=== PATIENT | female | born 1980 | race Caucasian/White ===

== ENCOUNTER 2016-11-23 19:55 | Emergency (ER) | payer OTHER ==
[2016-11-23 20:17] VITALS: BP 105/63; PULSE 101; RESP 18; TEMP 98.7
--- NOTE | 2016-11-23 21:34 | CT ---
EXAMINATION TYPE: CT cervical spine wo con DATE OF EXAM: 11/23/2016 COMPARISON: 12/10/2015 HISTORY: 36-year-old female complains of grinding sensation in neck when turning head to left. TECHNIQUE: Contiguous axial scanning of the cervical spine without IV contrast. Coronal and sagittal reconstructions performed. CT DLP: 181.7 mGycm Automated exposure control for dose reduction was used. FINDINGS: No craniocervical junction abnormality, predental space widening, or prevertebral soft tissue swellin g. Normal alignment of the C1-C2 lateral masses. No focal disc herniation seen. Disc interspaces are relatively maintained. Assessment of the spinal c anal from C7-T1 and below is limited due to artifact from patient's shoulders. There is no significant neuroforaminal stenosis or significant spondylotic change identified in the c ervical spine. However, note, there is congenital fusion of T2-T3 and moderate to severe facet arthropathy on the ri ght at T3-T4 which mildly narrows the neural foramen. IMPRESSION: 1. NO SIGNIFICANT DEGENERATIVE CHANGE OR DISCRETE ABNORMALITY IDENTIFIED OF THE CERVICAL SPINE. 2. 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 CHANGES MILDLY NARROW THE RIGHT-SIDED NEUROFORAMEN.
[2016-11-23] MEDS ORDERED: Acetaminophen-Codeine 300-30mg TAB PO STA (21:46)
--- NOTE | 2016-11-23 21:47 | ED ---
Neck Injury/Pain HPI - General Chief Complaint: Neck Pain/Injury Stated Complaint: Neck Pain Time Seen by Provider: 11/23/16 20:24 Mode of arrival: ambulatory Limitations: no limitations - History of Present Illness Initial Comments: Patient is a 36-year-old female presenting to the emergency department with chief complaint of neck pain. Patient states her neck pain started 3 days ago. Patient currently rates pain 9 out of 10, described as sharp and burning and radiating down her back. Pain is exacerbated with flexion and extension and rotation. Patient denies recent illness, fevers, chills, nausea, vomiting, shortness of breath, chest pain, or abdominal pain. Patient reports chronic numbness and tingling to her hands. Patient denies recent trauma or injury to her neck. Patient states she took Motrin 800 mg at 4 PM this afternoon with minimal relief. - Related Data Home Medications Medication Instructions Recorded Confirmed Albuterol Inhaler [Ventolin Hfa 2 puff INHALATION RT-Q6H PRN 07/25/15 12/10/15 Inhaler] Hydrocodone/Acetaminophen 1 - 2 tab PO Q4-6H PRN 07/25/15 12/10/15 [Hydrocodon-Acetaminoph 7.5-325] LORazepam [Lorazepam] 0.5 mg PO BID PRN 10/04/15 12/10/15 Previous Rx's Medication Instructions Recorded Cyclobenzaprine [Flexeril] 10 mg PO TID #20 tab 12/10/15 Ibuprofen [Motrin] 600 mg PO Q6HR PRN #40 day 12/10/15 Acetaminophen-Codeine 300-30mg 1 tab PO Q6H PRN #20 tablet 11/23/16 [Tylenol #3] Cyclobenzaprine [Flexeril] 10 mg PO TID #20 tab 11/23/16 Allergies Allergy/AdvReac Type Severity Reaction Status Date / Time cephalexin monohydrate Allergy Unknown Verified 11/23/16 20:17 [From Keflex] gabapentin [From Neurontin] Allergy Unknown Verified 11/23/16 20:17 naproxen Allergy Unknown Verified 11/23/16 20:17 Sulfa (Sulfonamide Allergy Unknown Verified 11/23/16 20:17 Antibiotics) tramadol Allergy Unknown Verified 11/23/16 20:17 Review of Systems ROS Statement: Those systems with pertinent positive or pertinent negative responses have been documented in the HPI. ROS Other: All systems not noted in ROS Statement are negative. Past Medical History Past Medical History: No Reported History Additional Past Medical History / Comment(s): endometrosis, lower back tumor History of Any Multi-Drug Resistant Organisms: None Reported Past Surgical History: Hysterectomy, Orthopedic Surgery Additional Past Surgical History / Comment(s): LEFT KNEE SURGERY Past Psychological History: Anxiety Smoking Status: Current every day smoker Past Alcohol Use History: None Reported Past Drug Use History: None Reported General Exam Limitations: no limitations General appearance: alert, in no apparent distress Head exam: Present: atraumatic, normocephalic, normal inspection Eye exam: Present: normal appearance ENT exam: Present: normal exam, mucous membranes moist, normal external ear exam Neck exam: Present: tenderness, full ROM. Absent: meningismus, lymphadenopathy , thyromegaly Expanded Neck exam: Present: tenderness (Tetanus with flexion, extension and rotation). Absent: midline deformity, anterior neck swelling, thyroid mass, tracheal deviation Respiratory exam: Present: normal lung sounds bilaterally. Absent: respiratory distress, wheezes, rales, rhonchi, chest wall tenderness Cardiovascular Exam: Present: regular rate, tachycardia, normal heart sounds. Absent: systolic murmur GI/Abdominal exam: Present: soft, normal bowel sounds. Absent: distended, tenderness Extremities exam: Present: normal inspection, full ROM, normal capillary refill. Absent: tenderness Back exam: Present: normal inspection, full ROM. Absent: tenderness, CVA tenderness (R), CVA tenderness (L), muscle spasm, paraspinal tenderness, vertebral tenderness Neurological exam: Present: alert, oriented X3, CN II-XII intact, normal gait, reflexes normal. Absent: motor sensory deficit Psychiatric exam: Present: normal affect, normal mood Skin exam: Present: warm, dry, intact, normal color Course Vital Signs 11/23/16 20:13 Temperature 98.7 F Pulse Rate 101 H Respiratory 18 Rate Blood Pressure 105/63 O2 Sat by Pulse 99 Oximetry Medical Decision Making - Medical Decision Making Neck pain suspect secondary to cervical strain. Computed tomography scan of cervical spine with evidence of congenital vertebral fusion of T2 and T3 and moderate to severe facet arthropathy on the right at T3-T4 which mildly narrows to neural foramen. Patient prescribed muscle relaxer and Tylenol 3. Patient instructed to follow-up with primary care physician and orthopedic service. Patient started to return to the emergency department with any new or worsening symptoms. Patient agrees to treatment plan. - Radiology Data Radiology results: report reviewed CT cervical spine without contrast: No significant degenerative change of discrete abnormality identified of the cervical spine. There is however, a congenital vertebral fusion of T2 and T3 and moderate to severe facet arthropathy on the right at T3-T4 which mildly narrows to neural foramen. Disposition Clinical Impression: Cervical sprain Disposition: HOME SELF-CARE Condition: Good Instructions: Cervical Strain (ED) Additional Instructions: Continue Tylenol 3 and Flexeril as directed for pain. Please follow-up with orthopedic service as directed and primary care physician as directed. May apply warm compresses for relief. Please return to the emergency department with any new or worsening symptoms. Prescriptions: Acetaminophen-Codeine 300-30mg [Tylenol #3] 1 tab PO Q6H PRN #20 tablet PRN Reason: Pain Cyclobenzaprine [Flexeril] 10 mg PO TID #20 tab Referrals: Jerrod Ervin MD [Primary Care Provider] - 1-2 days Khanh Ly DO [Doctor of Osteopathic Medicine] - 1-2 days Time of Disposition: 21:47
== END 2016-11-23 21:59 | disposition home or self-care (01) ==
LOC: EC 19:55
DX: S13.4XXA Sprain of ligaments of cervical spine, initial encounter (principal); F17.200 Nicotine dependence, unspecified, uncomplicated; Z88.1 Allergy status to other antibiotic agents; Z88.6 Allergy status to analgesic agent; Z88.2 Allergy status to sulfonamides; Z88.8 Allergy status to other drugs, medicaments and biological substances; X58.XXXA Exposure to other specified factors, initial encounter
CPT/HCPCS: 72125; 99283

== ENCOUNTER 2017-02-28 21:56 | Emergency (ER) | payer OTHER ==
[2017-02-28 22:27] VITALS: BP 114/69; PULSE 87; RESP 20; TEMP 97.7
[2017-02-28] MEDS ORDERED: ORPHENADRINE 30 MG/ML 2 ML VIAL IM STA (22:36)
[2017-02-28] MEDS ORDERED: KETOROLAC 60 MG/2 ML VIAL IM STA (22:36)
--- NOTE | 2017-02-28 22:40 | ED ---
General Adult HPI - General Chief complaint: Neck Pain/Injury Stated complaint: Neck pain Time Seen by Provider: 02/28/17 22:31 Source: patient, RN notes reviewed Mode of arrival: ambulatory Limitations: no limitations - History of Present Illness Initial comments: 36-year-old female presents to the emergency Department chief complaint of flareup of her chronic neck pain. She's had nothing for a long time she's had CAT scans and x-rays of it. She states she's been following [facility] currently trying to get an x-ray to. She states last 2 days it has flared up. She's been taking Motrin Tylenol without much improvement. Patient states exactly like her normal pain. Sometimes will radiate up the neck. Some sides of the neck. She denies any new falls or traumas or injuries to the neck. She states she just needs something to help her get through this pain. There's been no other symptoms and the patient. She is otherwise feeling well. Patient denies any recent fever, chills, shortness of breath, chest pain, back pain, abdominal pain, nausea vomiting, numbness or tingling, dysuria or hematuria, constipation or diarrhea, headaches or visual changes, or any other current symptoms. - Related Data Home Medications Medication Instructions Recorded Confirmed Albuterol Inhaler [Ventolin Hfa 2 puff INHALATION RT-Q6H PRN 07/25/15 02/28/17 Inhaler] Hydrocodone/Acetaminophen 1 - 2 tab PO Q4-6H PRN 07/25/15 02/28/17 [Hydrocodon-Acetaminoph 7.5-325] LORazepam [Lorazepam] 0.5 mg PO BID PRN 10/04/15 02/28/17 Previous Rx's Medication Instructions Recorded Cyclobenzaprine [Flexeril] 10 mg PO TID #20 tab 12/10/15 Ibuprofen [Motrin] 600 mg PO Q6HR PRN #40 day 12/10/15 Acetaminophen-Codeine 300-30mg 1 tab PO Q6H PRN #20 tablet 11/23/16 [Tylenol #3] Cyclobenzaprine [Flexeril] 10 mg PO TID #20 tab 11/23/16 Orphenadrine [Norflex] 100 mg PO Q12H #10 tablet.er 02/28/17 predniSONE 50 mg PO DAILY #5 tab 02/28/17 Allergies Allergy/AdvReac Type Severity Reaction Status Date / Time cephalexin monohydrate Allergy Unknown Verified 02/28/17 22:27 [From Keflex] gabapentin [From Neurontin] Allergy Unknown Verified 02/28/17 22:27 naproxen Allergy Unknown Verified 02/28/17 22:27 Sulfa (Sulfonamide Allergy Unknown Verified 02/28/17 22:27 Antibiotics) tramadol Allergy Unknown Verified 02/28/17 22:27 Review of Systems ROS Statement: Those systems with pertinent positive or pertinent negative responses have been documented in the HPI. ROS Other: All systems not noted in ROS Statement are negative. Past Medical History Past Medical History: No Reported History Additional Past Medical History / Comment(s): endometrosis, lower back tumor History of Any Multi-Drug Resistant Organisms: None Reported Past Surgical History: Hysterectomy, Orthopedic Surgery Additional Past Surgical History / Comment(s): LEFT KNEE SURGERY Past Psychological History: Anxiety Smoking Status: Current every day smoker Past Alcohol Use History: None Reported Past Drug Use History: None Reported General Exam Limitations: no limitations General appearance: alert, in no apparent distress ENT exam: Present: normal exam, mucous membranes moist Neck exam: Present: normal inspection, tenderness (minimal paraspinal), full ROM. Absent: meningismus, lymphadenopathy Respiratory exam: Present: normal lung sounds bilaterally. Absent: respiratory distress, wheezes, rales, rhonchi, stridor Cardiovascular Exam: Present: regular rate, normal rhythm, normal heart sounds. Absent: systolic murmur, diastolic murmur, rubs, gallop, clicks Neurological exam: Present: alert, oriented X3 Psychiatric exam: Present: normal affect, normal mood Skin exam: Present: warm, dry, intact, normal color. Absent: rash Course Vital Signs 02/28/17 22:25 Temperature 97.7 F Pulse Rate 87 Respiratory 20 Rate Blood Pressure 114/69 O2 Sat by Pulse 98 Oximetry Medical Decision Making - Medical Decision Making 36-year-old female presents emergency 5 chief complaint of flareup of her chronic pain. This time we did give the patient injections we'll start her muscle axes and steroids for home. We discussed follow-up with her doctor we discussed return parameters all questions. Patient stated that she understood and she is given plan. All questions have been answered. She will be discharged. Disposition Clinical Impression: Strain of neck muscle, Chronic neck pain Disposition: HOME SELF-CARE Condition: Stable Instructions: Cervical Strain (ED) Additional Instructions: Please use medication as discussed. Please follow up with family doctor if symptoms have not improved over the next two days. Please return to the emergency room if your symptoms increase or worsen or for any other concerns. Prescriptions: Orphenadrine [Norflex] 100 mg PO Q12H #10 tablet.er predniSONE 50 mg PO DAILY #5 tab Referrals: Jerrod Ervin MD [Primary Care Provider] - 1-2 days Time of Disposition: 22:39
== END 2017-02-28 22:56 | disposition home or self-care (01) ==
LOC: EC 21:56
DX: S16.1XXA Strain of muscle, fascia and tendon at neck level, initial encounter (principal); F17.200 Nicotine dependence, unspecified, uncomplicated; G89.29 Other chronic pain; Z88.1 Allergy status to other antibiotic agents; Z88.8 Allergy status to other drugs, medicaments and biological substances; Z88.6 Allergy status to analgesic agent; Z88.2 Allergy status to sulfonamides
CPT/HCPCS: 99282; 96372 ×2; J2360; J1885

== ENCOUNTER 2017-07-10 18:25 | Observation (INO) | payer OTHER ==
[2017-07-10] MEDS ORDERED: ONDANSETRON 4 MG/2 ML VIAL IVP STA (18:45)
[2017-07-10] MEDS ORDERED: SODIUM CHLORIDE 0.9% 1,000 ML IV STA (18:45)
[2017-07-10] MEDS ORDERED: MORPHINE SULFATE 2 MG/ML SYRINGE IVP ONE (18:46)
--- NOTE | 2017-07-10 18:49 | ED ---
Abdominal Pain HPI - General Chief Complaint: Abdominal Pain Stated Complaint: ABDOMINAL PAIN Time Seen by Provider: 07/10/17 18:32 Source: patient, RN notes reviewed, old records reviewed Mode of arrival: ambulatory Limitations: no limitations - History of Present Illness Initial Comments: 6 year female presents the emergency department today she of lower right-sided abdominal pain for one day. Patient states she is concerned she may have an issue with her ovary or her kidney. Patient relates that she partial hysterectomy 5 years ago. Patient states that she has had no fever or chills. Normal bowel movement today. No nausea or vomiting. Patient relates her urine been normal. Denies vaginal discharge. She states that she occasionally will have the pain radiating towards her back however she doesn't chronic back pain. - Related Data Home Medications Medication Instructions Recorded Confirmed Varenicline [Chantix Starter Pack] 0.5 mg PO BID 07/10/17 07/10/17 Allergies Allergy/AdvReac Type Severity Reaction Status Date / Time cephalexin monohydrate Allergy Unknown Verified 07/10/17 18:57 [From Keflex] gabapentin [From Neurontin] Allergy Unknown Verified 07/10/17 18:57 naproxen Allergy Unknown Verified 07/10/17 18:57 Sulfa (Sulfonamide Allergy Unknown Verified 07/10/17 18:57 Antibiotics) tramadol Allergy Unknown Verified 07/10/17 18:57 Review of Systems ROS Statement: Those systems with pertinent positive or pertinent negative responses have been documented in the HPI. ROS Other: All systems not noted in ROS Statement are negative. Past Medical History Past Medical History: No Reported History Additional Past Medical History / Comment(s): endometrosis, lower back tumor History of Any Multi-Drug Resistant Organisms: None Reported Past Surgical History: Hysterectomy, Orthopedic Surgery Additional Past Surgical History / Comment(s): LEFT KNEE SURGERY Past Psychological History: Anxiety Smoking Status: Current every day smoker Past Alcohol Use History: None Reported Past Drug Use History: None Reported General Exam - General Exam Comments Initial Comments: This patient's a 36-year-old female. No acute distress. Limitations: no limitations General appearance: alert, in no apparent distress Head exam: Present: atraumatic, normocephalic, normal inspection Eye exam: Present: normal appearance, PERRL, EOMI. Absent: scleral icterus, conjunctival injection, periorbital swelling ENT exam: Present: normal exam, mucous membranes moist Neck exam: Present: normal inspection. Absent: tenderness, meningismus, lymphadenopathy Respiratory exam: Present: normal lung sounds bilaterally. Absent: respiratory distress, wheezes, rales, rhonchi, stridor Cardiovascular Exam: Present: regular rate, normal rhythm, normal heart sounds. Absent: systolic murmur, diastolic murmur, rubs, gallop, clicks GI/Abdominal exam: Present: soft, tenderness (Right lower quadrant pain and tenderness.), normal bowel sounds. Absent: distended, guarding, rebound, rigid Extremities exam: Present: normal inspection, full ROM, normal capillary refill. Absent: tenderness, pedal edema, joint swelling, calf tenderness Back exam: Present: normal inspection Neurological exam: Present: alert, oriented X3, CN II-XII intact Course Vital Signs 07/10/17 07/10/17 07/10/17 18:27 20:12 21:34 Temperature 98.8 F Pulse Rate 119 H 81 78 Respiratory 20 18 18 Rate Blood Pressure 99/63 108/67 103/65 O2 Sat by Pulse 99 100 100 Oximetry 07/10/17 22:40 Temperature 98.1 F Pulse Rate 79 Respiratory 18 Rate Blood Pressure 106/67 O2 Sat by Pulse 97 Oximetry Medical Decision Making - Medical Decision Making 36-year-old female presents emergency Department chief complaint of right lower quadrant pain for the past day. No fever or chills. Lab work was reviewed and unremarkable. She was quite tender on exam. CT abdomen and pelvis were completed. There is evidence of early narcotic acute appendicitis. Patient started on Zosyn. Discussed case with Dr. Fuller who discussed with Dr. Nelson. Patient will be admitted under Dr. Nelson. Nothing by mouth after midnight. - Lab Data Result diagrams: 07/10/17 19:00 07/10/17 19:00 Lab Results 07/10/17 07/10/17 07/10/17 Range/Units 19:00 19:00 19:00 WBC 9.5 (3.8-10.6) k/uL RBC 4.26 (3.80-5.40) m/uL Hgb 13.4 (11.4-16.0) gm/dL Hct 40.4 (34.0-46.0) % MCV 94.8 (80.0-100.0) fL MCH 31.5 (25.0-35.0) pg MCHC 33.2 (31.0-37.0) g/dL RDW 13.0 (11.5-15.5) % Plt Count 300 (150-450) k/uL Neutrophils % 69 % Lymphocytes % 25 % Monocytes % 4 % Eosinophils % 1 % Basophils % 0 % Neutrophils # 6.6 (1.3-7.7) k/uL Lymphocytes # 2.4 (1.0-4.8) k/uL Monocytes # 0.4 (0-1.0) k/uL Eosinophils # 0.1 (0-0.7) k/uL Basophils # 0.0 (0-0.2) k/uL PT 10.5 (9.0-12.0) sec INR 1.1 (<1.2) APTT 24.1 (22.0-30.0) sec Sodium 142 (137-145) mmol/L Potassium 4.0 (3.5-5.1) mmol/L Chloride 106 (98-107) mmol/L Carbon Dioxide 25 (22-30) mmol/L Anion Gap 11 mmol/L BUN 7 (7-17) mg/dL Creatinine 0.60 (0.52-1.04) mg/dL Est GFR (CKD-EPI)AfAm >90 (>60 ml/min/1.73 sqM) Est GFR (CKD-EPI)NonAf >90 (>60 ml/min/1.73 sqM) Glucose 97 (74-99) mg/dL Plasma Lactic Acid Rudy (0.7-2.0) mmol/L Calcium 9.5 (8.4-10.2) mg/dL Total Bilirubin 0.5 (0.2-1.3) mg/dL AST 15 (14-36) U/L ALT 22 (9-52) U/L Alkaline Phosphatase 55 (38-126) U/L Total Protein 6.6 (6.3-8.2) g/dL Albumin 4.1 (3.5-5.0) g/dL Amylase 62 (30-110) U/L Lipase 90 (23-300) U/L Urine Color Urine Appearance (Clear) Urine pH (5.0-8.0) Ur Specific [place] (1.001-1.035) Urine Protein (Negative) Urine Glucose (UA) (Negative) Urine Ketones (Negative) Urine Blood (Negative) Urine Nitrite (Negative) Urine Bilirubin (Negative) Urine Urobilinogen (<2.0) mg/dL Ur Leukocyte Esterase (Negative) 07/10/17 07/10/17 Range/Units 19:00 19:00 WBC (3.8-10.6) k/uL RBC (3.80-5.40) m/uL Hgb (11.4-16.0) gm/dL Hct (34.0-46.0) % MCV (80.0-100.0) fL MCH (25.0-35.0) pg MCHC (31.0-37.0) g/dL RDW (11.5-15.5) % Plt Count (150-450) k/uL Neutrophils % % Lymphocytes % % Monocytes % % Eosinophils % % Basophils % % Neutrophils # (1.3-7.7) k/uL Lymphocytes # (1.0-4.8) k/uL Monocytes # (0-1.0) k/uL Eosinophils # (0-0.7) k/uL Basophils # (0-0.2) k/uL PT (9.0-12.0) sec INR (<1.2) APTT (22.0-30.0) sec Sodium (137-145) mmol/L Potassium (3.5-5.1) mmol/L Chloride (98-107) mmol/L Carbon Dioxide (22-30) mmol/L Anion Gap mmol/L BUN (7-17) mg/dL Creatinine (0.52-1.04) mg/dL Est GFR (CKD-EPI)AfAm (>60 ml/min/1.73 sqM) Est GFR (CKD-EPI)NonAf (>60 ml/min/1.73 sqM) Glucose (74-99) mg/dL Plasma Lactic Acid Rudy 0.8 (0.7-2.0) mmol/L Calcium (8.4-10.2) mg/dL Total Bilirubin (0.2-1.3) mg/dL AST (14-36) U/L ALT (9-52) U/L Alkaline Phosphatase (38-126) U/L Total Protein (6.3-8.2) g/dL Albumin (3.5-5.0) g/dL Amylase (30-110) U/L Lipase (23-300) U/L Urine Color Light Yellow Urine Appearance Clear (Clear) Urine pH 6.5 (5.0-8.0) Ur Specific [place] 1.005 (1.001-1.035) Urine Protein Negative (Negative) Urine Glucose (UA) Negative (Negative) Urine Ketones Negative (Negative) Urine Blood Negative (Negative) Urine Nitrite Negative (Negative) Urine Bilirubin Negative (Negative) Urine Urobilinogen <2.0 (<2.0) mg/dL Ur Leukocyte Esterase Negative (Negative) - Radiology Data Radiology results: report reviewed Borderline appendix CT findings. The findings correlate with the clinical diagnosis of 9, acute appendicitis. 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 Disposition Clinical Impression: Appendicitis Disposition: HOME SELF-CARE Condition: Good Is patient prescribed a controlled substance at d/c from ED?: No When asked, does pt state using other controlled substances?: No If prescribed controlled substance>3 days was MAPS reviewed?: No If opioid is for acute pain is fill amount 7 days or less?: No If Rx opioid, was Start Talking consent form obtained?: No Referrals: Jluis Moore MD [Primary Care Provider] - 1-2 days Time of Disposition: 23:07
[2017-07-10 19:17] LABS: Appearance,Urine Clear (Clear); Basophils % (A) 0 %; Bilirubin,Urine Negative (Negative); Blood,Urine Negative (Negative); Color,Urine Light Yellow; Eosinophils # (A) 0.1 k/uL (0-0.7); Eosinophils % (A) 1 %; Glucose,Urine (UA) Negative (Negative); HCT 40.4 % (34.0-46.0); HGB 13.4 gm/dL (11.4-16.0); Ketones,Urine Negative (Negative); Leukocyte Esterase,Urine Negative (Negative); Lymphocytes # (A) 2.4 k/uL (1.0-4.8); Lymphocytes % (A) 25 %; MCH 31.5 pg (25.0-35.0); MCHC 33.2 g/dL (31.0-37.0); MCV 94.8 fL (80.0-100.0); Mean Platelet Volume 6.8; Monocytes # (A) 0.4 k/uL (0-1.0); Monocytes % (A) 4 %; Neutrophils # (A) 6.6 k/uL (1.3-7.7); Neutrophils % (A) 69 %; Nitrite,Urine Negative (Negative); PH, Urine 6.5 (5.0-8.0); Platelet Count 300 k/uL (150-450); Protein,Urine Negative (Negative); RBC 4.26 m/uL (3.80-5.40); Specific Gravity,Urine 1.005 (1.001-1.035); Urobilinogen,Urine <2.0 mg/dL (<2.0); WBC 9.5 k/uL (3.8-10.6)
[2017-07-10 19:30] LABS: ALT 22 U/L (9-52); AST 15 U/L (14-36); Albumin 4.1 g/dL (3.5-5.0); Alkaline Phosphatase 55 U/L (38-126); Amylase 62 U/L (30-110); Anion Gap 11 mmol/L; Blood Urea Nitrogen 7 mg/dL (7-17); Calcium 9.5 mg/dL (8.4-10.2); Carbon Dioxide 25 mmol/L (22-30); Chloride 106 mmol/L (98-107); Glucose 97 mg/dL (74-99); Lipase 90 U/L (23-300); Sodium 142 mmol/L (137-145); Total Bilirubin 0.5 mg/dL (0.2-1.3); Total Protein 6.6 g/dL (6.3-8.2)
[2017-07-10 19:34] LABS: INR 1.1 (<1.2); Partial Thromboplastin Time 24.1 sec (22.0-30.0); Prothrombin Time 10.5 sec (9.0-12.0)
--- NOTE | 2017-07-10 22:02 | CT ---
EXAMINATION TYPE: CT abdomen pelvis w con DATE OF EXAM: 07/10/2017 COMPARISON: NONE HISTORY: Lower abdominal pain x [address] DLP: 1090 mGycm Automated exposure control for dose reduction was used. TECHNIQUE: Helical acquisition of images was performed from the lung bases through the pelvis. CONTRAST: Performed without Oral Contrast and with IV Contrast, patient injected with 100 mL of Isovue 300. FINDINGS: LUNG BASES: No significant abnormality is appreciated. LIVER/GB: No significant abnormality is appreciated. PANCREAS: No significant abnormality is seen. SPLEEN: No significant abnormality is seen. ADRENALS: No significant abnormality is seen. 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 Otherwise, the kidneys are unremarkable. PERITONEAL CAVITY: No free air is visualized. No peritoneal fluid. RETROPERITONEAL ADENOPATHY: None visualized REPRODUCTIVE ORGANS: No significant abnormality is seen URINARY BLADDER: No significant abnormality is seen. PELVIC ADENOPATHY: None visualized. OSSEOUS STRUCTURES: No significant abnormality is seen. VASCULATURE: Unremarkable. BOWEL: The cecum is low in position, it abuts the urinary bladder dome. The appendix is retrocecal, extending posterior laterally and then superiorly where there is a 2 mm appendicolith within its lume n. The diameter of the appendix is slightly increased from normal, measuring 8 mm in its caliber rath er than the normal < 6 mm. There is no periappendiceal inflammation. Adjacent to the appendix are beau pacified small bowel loops which make visibility difficult. Remainder of the bowel are unremarkable. IMPRESSION: 1. BORDERLINE APPENDIX CT FINDINGS; THE FINDINGS CAN CORRELATE WITH A CLINICAL DIAGNOSIS OF NONCOMPL ICATED APPENDICITIS. 2. Intrapelvic right kidney noted, congenital variant anatomy.
[2017-07-10] MEDS ORDERED: MORPHINE SULFATE 2 MG/ML SYRINGE IVP STA (22:17)
[2017-07-10] MEDS: SODIUM CHLORIDE 0.9% 1,000 ML IV SCH (22:35)
[2017-07-10] MEDS ORDERED: diphenhydrAMINE 50 MG/ML 1 ML VIAL IVP STA (22:45)
[2017-07-10] MEDS ORDERED: PIPERACILLIN-TAZOBACTAM 3.375 GM in DEXTROSE/WATER 1 50ML.BAG IVPB STA (22:45)
[2017-07-10] MEDS ORDERED: NALOXONE 0.4 MG/ML 1 ML VIAL IV PRN (23:08)
[2017-07-10] MEDS ORDERED: ACETAMINOPHEN TAB 325 MG TAB PO PRN (23:08)
[2017-07-10] MEDS ORDERED: ONDANSETRON 4 MG/2 ML VIAL IVP PRN (23:08)
[2017-07-10] MEDS ORDERED: IBUPROFEN 400 MG TAB PO PRN (23:08)
[2017-07-10] MEDS ORDERED: KETOROLAC 30 MG/ML 1 ML VIAL IVP PRN (23:08)
[2017-07-11 01:11] VITALS: BMI 19.6
[2017-07-11] MEDS: MORPHINE SULFATE 2 MG/ML SYRINGE IV PRN ×5 (02:29→22:06)
[2017-07-11] MEDS: SODIUM CHLORIDE 0.9% 1,000 ML IV SCH (07:30)
[2017-07-11 07:52] LABS: Basophils % (A) 0 %; Eosinophils # (A) 0.1 k/uL (0-0.7); Eosinophils % (A) 1 %; HCT 35.6 % (34.0-46.0); HGB 11.6 gm/dL (11.4-16.0); Lymphocytes # (A) 4.1 k/uL (1.0-4.8); Lymphocytes % (A) 45 %; MCH 31.4 pg (25.0-35.0); MCHC 32.7 g/dL (31.0-37.0); MCV 95.9 fL (80.0-100.0); Mean Platelet Volume 7.4; Monocytes # (A) 0.6 k/uL (0-1.0); Monocytes % (A) 6 %; Neutrophils # (A) 4.2 k/uL (1.3-7.7); Neutrophils % (A) 46 %; Platelet Count 256 k/uL (150-450); RBC 3.71 m/uL (3.80-5.40); RDW 13.1 % (11.5-15.5); WBC 9.1 k/uL (3.8-10.6)
--- NOTE | 2017-07-11 08:04 | P.GSHP ---
History of Present Illness H&P Date: 07/11/17 Chief Complaint: Right lower quadrant pain This is a 36-year-old female who has complaints of right lower quadrant pain. Patient states that she has had some mild intermittent pain in the right lower quadrant over the last 2 weeks. Last night she presented to the emergency room with severe right lower quadrant pain. She's had a CAT scan performed which shows questionable appendicitis. Past Medical History Past Medical History: No Reported History Additional Past Medical History / Comment(s): endometrosis, lower back tumor History of Any Multi-Drug Resistant Organisms: None Reported Past Surgical History: Section, Hysterectomy, Orthopedic Surgery Additional Past Surgical History / Comment(s): LEFT KNEE SURGERY,t3,4 and 5 fused together Past Psychological History: Anxiety Smoking Status: Current every day smoker Past Alcohol Use History: None Reported Past Drug Use History: None Reported - Past Family History Mother Family Medical History: Cancer Additional Family Medical History / Comment(s): of cancer Father Family Medical History: Hyperlipidemia, Hypertension, Myocardial Infarction ([place]) Medications and Allergies Home Medications Medication Instructions Recorded Confirmed Type Albuterol Inhaler [Ventolin Hfa 2 puff INHALATION Q6HR PRN 07/10/17 07/11/17 History Inhaler] Varenicline [Chantix Starter Pack] 0.5 mg PO BID 07/10/17 07/10/17 History Allergies Allergy/AdvReac Type Severity Reaction Status Date / Time cephalexin monohydrate Allergy Unknown Verified 07/10/17 18:57 [From Keflex] cortisone Allergy Swelling Verified 07/11/17 00:04 gabapentin [From Neurontin] Allergy Unknown Verified 07/11/17 00:04 naproxen Allergy Dyspnea Verified 07/11/17 00:04 Sulfa (Sulfonamide Allergy Anaphylaxis Verified 07/11/17 00:04 Antibiotics) tramadol Allergy Rash/Hives Verified 07/11/17 00:04 Surgical - Exam Vital Signs Temp Pulse Resp BP Pulse Ox 98.8 F 119 H 20 99/63 99 07/10/17 18:27 07/10/17 18:27 07/10/17 18:27 07/10/17 18:27 07/10/17 18:27 - General well developed, no distress - Eyes PERRL - ENT normal pinna - Neck no masses - Respiratory normal expansion - Cardiovascular Rhythm: regular - Abdomen Right lower quadrant pain with rebound tenderness Abdomen: soft Results - Labs 07/11/17 07:40 07/10/17 19:00 Abnormal Lab Results - Last 24 Hours (Table) 07/11/17 Range/Units 07:40 RBC 3.71 L (3.80-5.40) m/uL Diabetes panel 07/10/17 Range/Units 19:00 Sodium 142 (137-145) mmol/L Potassium 4.0 (3.5-5.1) mmol/L Chloride 106 (98-107) mmol/L Carbon Dioxide 25 (22-30) mmol/L BUN 7 (7-17) mg/dL Creatinine 0.60 (0.52-1.04) mg/dL Glucose 97 (74-99) mg/dL Calcium 9.5 (8.4-10.2) mg/dL AST 15 (14-36) U/L ALT 22 (9-52) U/L Alkaline Phosphatase 55 (38-126) U/L Total Protein 6.6 (6.3-8.2) g/dL Albumin 4.1 (3.5-5.0) g/dL Calcium panel 07/10/17 Range/Units 19:00 Calcium 9.5 (8.4-10.2) mg/dL Albumin 4.1 (3.5-5.0) g/dL Pituitary panel 07/10/17 Range/Units 19:00 Sodium 142 (137-145) mmol/L Potassium 4.0 (3.5-5.1) mmol/L Chloride 106 (98-107) mmol/L Carbon Dioxide 25 (22-30) mmol/L BUN 7 (7-17) mg/dL Creatinine 0.60 (0.52-1.04) mg/dL Glucose 97 (74-99) mg/dL Calcium 9.5 (8.4-10.2) mg/dL Adrenal panel 07/10/17 Range/Units 19:00 Sodium 142 (137-145) mmol/L Potassium 4.0 (3.5-5.1) mmol/L Chloride 106 (98-107) mmol/L Carbon Dioxide 25 (22-30) mmol/L BUN 7 (7-17) mg/dL Creatinine 0.60 (0.52-1.04) mg/dL Glucose 97 (74-99) mg/dL Calcium 9.5 (8.4-10.2) mg/dL Total Bilirubin 0.5 (0.2-1.3) mg/dL AST 15 (14-36) U/L ALT 22 (9-52) U/L Alkaline Phosphatase 55 (38-126) U/L Total Protein 6.6 (6.3-8.2) g/dL Albumin 4.1 (3.5-5.0) g/dL Assessment and Plan Assessment: Acute appendicitis. We'll perform laparoscopic appendectomy.
[2017-07-11] MEDS ORDERED: IV FLUID CONTINUATION 1,000 ML IV ONE (08:31)
[2017-07-11] MEDS ORDERED: ALBUTEROL NEBULIZED 2.5 MG/3 ML INHALATION STA (08:34)
[2017-07-11 08:37] LABS: ALT 16 U/L (9-52); AST 13 U/L (14-36); Albumin 2.9 g/dL (3.5-5.0); Alkaline Phosphatase 42 U/L (38-126); Anion Gap 7 mmol/L; Blood Urea Nitrogen 6 mg/dL (7-17); Calcium 8.7 mg/dL (8.4-10.2); Carbon Dioxide 24 mmol/L (22-30); Chloride 109 mmol/L (98-107); Glucose 88 mg/dL (74-99); Potassium 4.1 mmol/L (3.5-5.1); Sodium 140 mmol/L (137-145); Total Bilirubin 0.5 mg/dL (0.2-1.3); Total Protein 5.1 g/dL (6.3-8.2)
[2017-07-11] MEDS ORDERED: SCOPOLAMINE 1.5MG/72HR PATCH TRANSDERM ONE (08:37)
[2017-07-11] MEDS ORDERED: HEPARIN SODIUM,PORCINE 5,000 UNIT/ML 1 ML VIAL SQ ONE (08:38)
[2017-07-11] MEDS ORDERED: ONDANSETRON 4 MG/2 ML VIAL IVP ONE (08:38)
[2017-07-11] MEDS ORDERED: PANTOPRAZOLE 40 MG/10 ML VIAL IV SCH (09:00)
[2017-07-11] MEDS ORDERED: GLYCOPYRROLATE 0.2 MG/ML 2 ML VIAL ONE (09:01)
[2017-07-11] MEDS ORDERED: fentaNYL (PF) 50 MCG/ML 2 ML AMP ONE (09:01)
[2017-07-11] MEDS ORDERED: LIDOCAINE 1% INJ 10MG/ML (20 ML MDV) ONE (09:01)
[2017-07-11] MEDS ORDERED: KETOROLAC 30 MG/ML 1 ML VIAL ONE (09:01)
[2017-07-11] MEDS ORDERED: NEOSTIGMINE 1 MG/ML 10 ML VIAL ONE (09:01)
[2017-07-11] MEDS ORDERED: PROPOFOL 10 MG/ML 20 ML VIAL IV ONE (09:01)
[2017-07-11] MEDS ORDERED: MIDAZOLAM 2 MG/2 ML VIAL ONE (09:01)
[2017-07-11] MEDS ORDERED: SUCCINYLCHOLINE CHLORIDE 100 MG/5 ML SYR IV ONE (09:01)
[2017-07-11] MEDS ORDERED: ROCURONIUM BROMIDE 10 MG/ML 10 ML VIAL IV ONE (09:01)
[2017-07-11] MEDS ORDERED: MORPHINE SULFATE 10 MG/ML SYRINGE ONE (09:01)
[2017-07-11] MEDS ORDERED: BUPIVACAINE (PF) 0.5% 30 ML VIAL SQ ONE (09:22)
--- NOTE | 2017-07-11 09:35 | P.OP ---
Date of Procedure: 07/11/17 Preoperative Diagnosis: Acute appendicitis Postoperative Diagnosis: Acute appendicitis Procedure(s) Performed: Laparoscopic appendectomy Anesthesia: ALEJO Surgeon: Cole Nelson Estimated Blood Loss (ml): 5 Pathology: other (Appendix) Condition: stable Disposition: PACU Description of Procedure: The patient's placed on the operating table in the supine position. The patient received general anesthesia. The abdomen was prepped and draped in the usual sterile fashion. The skin was anesthetized 1% local Xylocaine at the trocar sites. Using an 11 blade the skin was incised at the umbilicus. The umbilicus was grasped with a [place] clamp and then a Veress needle was placed into the peritoneal cavity. Position of the Veress needle was confirmed with positive drop test. After adequate insufflation a 5 mm trocar was placed into the peritoneal cavity. The abdomen was further insufflated. And then the laparoscope was placed in the peritoneal cavity. Next a 5 mm trocar was placed in the midline suprapubic position. And then a 10 mm trocar was placed in the midline epigastric position. The patient was rotated with the right side up and in Trendelenburg. The appendix was visualized. The appendix appeared to be inflamed. The appendix was grasped and then using the Harmonic scissors the mesoappendix was divided. A PDS Endoloop was then placed around the base of the appendix. And then the appendix was divided using Harmonic scissors. The appendix was placed into an Endo Catch and brought out through the 10 mm trocar site. The abdomen was irrigated. There is no bleeding seen. The trochars withdrawn. The skin was closed interrupted 3-0 Monocryl suture. Dermabond dressing was applied. Patient was sent to recovery room in stable condition.
[2017-07-11] MEDS: MORPHINE SULFATE 4MG/4ML SYRG IVP ONE ×4 (10:05→10:25)
[2017-07-11] MEDS ORDERED: LACTATED RINGERS 1,000 ML IV SCH (15:15)
[2017-07-11] MEDS: KETOROLAC 30 MG/ML 1 ML VIAL IVP PRN (20:42)
[2017-07-11] MEDS: SIMETHICONE 80 MG CHEWABLE PO SCH (22:07)
[2017-07-12] MEDS: SODIUM CHLORIDE 0.9% 1,000 ML IV SCH ×2 (01:03→05:22)
[2017-07-12] MEDS: KETOROLAC 30 MG/ML 1 ML VIAL IVP PRN ×2 (04:23→10:28)
[2017-07-12] MEDS: MORPHINE SULFATE 2 MG/ML SYRINGE IV PRN ×2 (04:24→12:50)
[2017-07-12 05:17] VITALS: PULSE 94; RESP 16
--- NOTE | 2017-07-12 08:17 | P.PN ---
Subjective Progress Note Date: 07/12/17 Principal diagnosis: Appendicitis She is POD 1 s/p appendectomy. She reports right flank pain. She had troubles with abdominal gas bloat last night. She has history of chronic pain and takes Patten regularly. She is voiding spontaneously. She is tolerating diet. Objective - Vital Signs Vital signs: Vital Signs Temp 98.3 F 07/12/17 04:16 Pulse 94 07/12/17 04:16 Resp 16 07/12/17 04:16 BP 108/69 07/12/17 04:16 Pulse Ox 96 07/12/17 04:16 Intake & Output 07/11/17 07/12/17 07/12/17 18:59 06:59 18:59 Intake Total 2400 Output Total 5 Balance 2395 Intake: IV 500 Oral 1900 Output: Estimated Blood Loss 5 Other: # Voids 1 1 - Exam GENERAL: Well developed and in no acute distress. Pleasant. HEENT: No sclera icterus. Extraocular movements grossly intact. Moist buccal mucosa. Head is atraumatic, normocephalic. Hears conversational speech. No nasal drainage. Has poor dentition with missing teeth. NECK: Supple without lymphadenopathy. No JV distention. CHEST: Non-labored respirations and equal bilateral excursions. CARDIOVASCULAR: Regular rate and rhythm. Palpable 2+ radial pulses. ABDOMEN: Soft, mild distention. Incisions are intact. No signs of cellulitis or infection. Mild tenderness right lower quadrant. MUSCULOSKELETAL: No clubbing, cyanosis or edema. NEUROLOGIC: No focal or lateralizing signs. PSYCH: Appropriate affect. Alert and oriented to person, place and time. SKIN: Good skin turgor. Well perfused. - Labs CBC & Chem 7: 07/11/17 07:40 07/11/17 07:40 Labs: Abnormal Lab Results - Last 24 Hours (Table) 07/11/17 Range/Units 07:40 Chloride 109 H (98-107) mmol/L BUN 6 L (7-17) mg/dL AST 13 L (14-36) U/L Total Protein 5.1 L (6.3-8.2) g/dL Albumin 2.9 L (3.5-5.0) g/dL Microbiology - Last 24 Hours (Table) 07/10/17 19:00 Blood Culture - Preliminary Blood No Growth after 24 hours Assessment and Plan (1) Chronic pain syndrome Current Visit: Yes Status: Acute Code(s): G89.4 - CHRONIC PAIN SYNDROME SNOMED Code(s): 199379783 (2) Chronic lower back pain Current Visit: Yes Status: Acute Code(s): M54.5 - LOW BACK PAIN; G89.29 - OTHER CHRONIC PAIN SNOMED Code(s): 679382418 (3) Narcotic dependence, episodic use Current Visit: Yes Status: Acute Code(s): F11.20 - OPIOID DEPENDENCE, UNCOMPLICATED SNOMED Code(s): 300456022 Plan: 1. She still reports uncontrolled pain. Will reassess for possible discharge this afternoon. 2. Follow-up instructions were reviewed.
[2017-07-12 08:23] VITALS: BP 97/59; TEMP 98
[2017-07-12] MEDS ORDERED: HYDROcodone/APAP 7.5-325MG 1 EACH TAB PO PRN (08:24)
[2017-07-12] MEDS ORDERED: SIMETHICONE 80 MG CHEWABLE PO SCH (09:00)
[2017-07-12] MEDS ORDERED: PANTOPRAZOLE 40 MG TABLET PO SCH (09:00)
[2017-07-12] MEDS: SIMETHICONE 80 MG CHEWABLE PO SCH (09:34)
== END 2017-07-12 13:55 | disposition home or self-care (01) ==
LOC: EC 18:25 → 6PED 23:10
PROVIDERS: ADMIT Surgery; ATTEND Surgery
DX: K35.80 Unspecified acute appendicitis (principal); F17.200 Nicotine dependence, unspecified, uncomplicated; J45.909 Unspecified asthma, uncomplicated; G89.4 Chronic pain syndrome; M54.5 Low back pain; F11.20 Opioid dependence, uncomplicated; Z90.710 Acquired absence of both cervix and uterus; Z79.899 Other long term (current) drug therapy; Z82.49 Family history of ischemic heart disease and other diseases of the circulatory system; Z80.9 Family history of malignant neoplasm, unspecified; Z88.1 Allergy status to other antibiotic agents; Z88.5 Allergy status to narcotic agent; Z88.2 Allergy status to sulfonamides; Z88.8 Allergy status to other drugs, medicaments and biological substances
CPT/HCPCS: 44970; 99285 ×2; 96375 ×4; 96361 ×2; 96376 ×2; 96365 ×2; 96366; 36415; 94640; 81025; 88304; 80053 ×2; 82150; 83605; 83690; 85025 ×2; 85610; 85730; 81003; 87040; 74177; G0378 ×3; J2250; J1644; J2710; J2270 ×5; J2405 ×2; J2001; J3010; J1885 ×2; J2543; J0330; J2704; C9113; Q9967

== ENCOUNTER → 2017-08-19 | Outpatient (CLI) | payer OTHER ==
--- NOTE | 2017-08-19 13:44 | US ---
EXAMINATION TYPE: US kidneys/renal and bladder DATE OF EXAM: 08/19/2017 COMPARISON: CT abdomen and pelvis July 10, 2017 CLINICAL HISTORY: R10.9 Abdominal Pain N39.0 Recurrent Urinary Tract. EXAM MEASUREMENTS: Right Kidney: 9.1 x 2.8 x 4.8 cm Left Kidney: 10.6 x 4.9 x 4.9 cm Right Kidney: pelvic kidney Left Kidney: No hydronephrosis or masses seen Bladder: wnl Bilateral Jets seen: Yes There is no evidence for hydronephrosis at this point in time. Low positioned right kidney with incre ased cortical echogenicity is present. No nephrolithiasis is seen. No masses are identified. The ur inary bladder is satisfactorily distended. Bilateral ureteral jets are seen. IMPRESSION: Redemonstration of low positioned right kidney without hydronephrosis identified bilaterally.
== END | disposition home or self-care (01) ==
LOC: RADUSWWP 12:53
PROVIDERS: ATTEND Internal Medicine
DX: N28.89 Other specified disorders of kidney and ureter (principal)
CPT/HCPCS: 76770

== ENCOUNTER → 2017-08-29 | Outpatient (CLI) | payer OTHER ==
[2017-08-29 18:42] LABS: HCT 37.1 % (34.0-46.0); HGB 11.9 gm/dL (11.4-16.0); MCHC 32.2 g/dL (31.0-37.0); MCV 96.2 fL (80.0-100.0); Mean Platelet Volume 6.5; Platelet Count 493 k/uL (150-450); RBC 3.86 m/uL (3.80-5.40); RDW 13.7 % (11.5-15.5); WBC 12.1 k/uL (3.8-10.6)
[2017-08-29 18:43] LABS: Appearance,Urine Clear (Clear); Bilirubin,Urine Negative (Negative); Blood,Urine Negative (Negative); Color,Urine Light Yellow; Glucose,Urine (UA) Negative (Negative); Ketones,Urine Negative (Negative); Leukocyte Esterase,Urine Negative (Negative); Nitrite,Urine Negative (Negative); Protein,Urine Negative (Negative); Specific Gravity,Urine 1.002 (1.001-1.035); Urobilinogen,Urine <2.0 mg/dL (<2.0)
[2017-08-29 18:55] LABS: Blood Urea Nitrogen 2 mg/dL (7-17)
[2017-08-29 19:04] LABS: ALT 18 U/L (9-52); AST 20 U/L (14-36); Albumin 4.2 g/dL (3.5-5.0); Alkaline Phosphatase 79 U/L (38-126); Anion Gap 9 mmol/L; Blood Urea Nitrogen 2 mg/dL (7-17); Calcium 9.3 mg/dL (8.4-10.2); Carbon Dioxide 26 mmol/L (22-30); Chloride 106 mmol/L (98-107); Glucose 79 mg/dL (74-99); Potassium 3.5 mmol/L (3.5-5.1); Sodium 141 mmol/L (137-145); Total Bilirubin 0.4 mg/dL (0.2-1.3)
--- NOTE | 2017-09-01 08:44 | CT ---
EXAMINATION TYPE: CT abdomen pelvis w con DATE OF EXAM: 08/29/2017 COMPARISON: 07/10/2017 HISTORY: Pain after appendectomy. CT DLP: 451.3 mGycm CONTRAST: CT scan of the abdomen and pelvis is performed with Oral Contrast and with IV Contrast, patient injec beny with 100 mL of Isovue 300. FINDINGS: LUNG BASES-: No visible nodule. No infiltrate. LIVER/GB: No calcified gallstones. No space occupying hepatic lesion. Biliary tree is of normal ca liber. PANCREAS: No inflammation. No distinct mass. SPLEEN: No splenic enlargement. No lesion seen. ADRENALS: No nodule. No thickening. KIDNEYS/BLADDER: The right kidney is pelvic in location. No hydronephrosis. No nephrolithiasis. No distinct renal mass. Urinary bladder grossly unremarkable. BOWEL: Normal appendix. Normal bowel caliber. No inflammation. GENITAL ORGANS: No gross abnormality. LYMPH NODES: No greater than 1cm abdominal or pelvic lymph nodes are appreciated. AORTA: No significant abnormality. OSSEOUS STRUCTURES: No significant abnormality is seen. OTHER: No significant additional abnormality is seen. IMPRESSION: 1. Right-sided pelvic kidney. Otherwise unremarkable study.
== END | disposition home or self-care (01) ==
LOC: RADCTMAIN 17:59
PROVIDERS: ATTEND Internal Medicine
DX: Z00.00 Encounter for general adult medical examination without abnormal findings (principal); R10.9 Unspecified abdominal pain; N39.0 Urinary tract infection, site not specified; M54.5 Low back pain
CPT/HCPCS: 80053; 82565; 84520; 85027; 81003; 74177; 36415; Q9967

== ENCOUNTER 2017-10-18 14:04 | Emergency (ER) | payer OTHER ==
[2017-10-18 14:18] VITALS: RESP 18
[2017-10-18] MEDS ORDERED: CYCLOBENZAPRINE 10 MG TAB PO STA (14:46)
[2017-10-18] MEDS ORDERED: KETOROLAC 30 MG/ML 1 ML VIAL IM STA (14:46)
[2017-10-18] MEDS ORDERED: ONDANSETRON 4 MG TAB PO STA (14:48)
--- NOTE | 2017-10-18 14:51 | ED ---
General Adult HPI - General Chief complaint: Headache Stated complaint: Headache Time Seen by Provider: 10/18/17 14:26 Source: patient Mode of arrival: ambulatory Limitations: no limitations - History of Present Illness Initial comments: Patient presents with a chief complaint of left-sided neck pain and headache. Patient says his been going on for 3 days. She cannot identify an inciting incident. No aggravating or alleviating factors. Timing is constant. Patient states that she has a history of migraine headaches of this does not feel like her typical migraine pattern. She denies any fever, chills, abdominal pain, chest pain, or shortness of breath but she does admit to nausea and vomiting. Patient denies any lightheadedness, syncope, or discoordination. Patient drove herself to the emergency department today. - Related Data Home Medications Medication Instructions Recorded Confirmed Albuterol Inhaler [Ventolin Hfa 2 puff INHALATION Q6HR PRN 07/10/17 10/01/17 Inhaler] Previous Rx's Medication Instructions Recorded HYDROcodone/APAP 7.5-325MG [Collins 1 tab PO Q4H PRN 3 Days #18 tab 07/11/17 7.5-325] Cyclobenzaprine [Flexeril] 10 mg PO TID #12 tab 10/18/17 Ondansetron [Zofran] 4 mg PO Q8HR PRN #12 tab 10/18/17 Allergies Allergy/AdvReac Type Severity Reaction Status Date / Time cephalexin monohydrate Allergy Unknown Verified 10/18/17 14:18 [From Keflex] cortisone Allergy Swelling Verified 10/18/17 14:18 gabapentin [From Neurontin] Allergy Unknown Verified 10/18/17 14:18 naproxen Allergy Dyspnea Verified 10/18/17 14:18 Sulfa (Sulfonamide Allergy Anaphylaxis Verified 10/18/17 14:18 Antibiotics) tramadol Allergy Rash/Hives Verified 10/18/17 14:18 Review of Systems ROS Statement: Those systems with pertinent positive or pertinent negative responses have been documented in the HPI. ROS Other: All systems not noted in ROS Statement are negative. Gastrointestinal: Reports: nausea, vomiting Neurological: Reports: headache Past Medical History Past Medical History: No Reported History, Asthma Additional Past Medical History / Comment(s): Right pelvic (low) kidney. Chronic cervical spine problems and pain. 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 She did have cryotherapy of the cervix for cervical dysplasia at age 15. Her vaginal hysterectomy was done for abnormal bleeding, pain and ovarian cysts. History of Any Multi-Drug Resistant Organisms: None Reported Past Surgical History: Appendectomy, Section, Hysterectomy, Orthopedic Surgery Additional Past Surgical History / Comment(s): spinal T3,4 and 5 fused together. Wrist surgery Past Psychological History: Anxiety Smoking Status: Current every day smoker Past Alcohol Use History: None Reported Past Drug Use History: None Reported - Past Family History Mother Family Medical History: Cancer (Ovarian cancer) Additional Family Medical History / Comment(s): of cancer Father Family Medical History: Hyperlipidemia, Hypertension, Myocardial Infarction ([place]) Additional Family Medical History / Comment(s): Paternal aunt and grandmother had uterine cancer. General Exam Limitations: no limitations General appearance: alert, in no apparent distress Head exam: Present: atraumatic, normocephalic Eye exam: Present: normal appearance, PERRL, EOMI ENT exam: Present: normal exam Neck exam: Present: normal inspection, tenderness (Paraspinal tenderness on the left). Absent: meningismus Respiratory exam: Present: normal lung sounds bilaterally. Absent: respiratory distress Cardiovascular Exam: Present: regular rate, normal rhythm GI/Abdominal exam: Present: soft, tenderness (Suprapubic tenderness noted). Absent: distended Rectal exam: Present: deferred Extremities exam: Present: normal inspection Back exam: Present: normal inspection Neurological exam: Present: alert, oriented X3, CN II-XII intact, normal gait, other (Patient able to really well without assistance. Strength and sensation is normal bilaterally in the upper and lower extremities. Romberg negative, cerebellar testing within normal limits.) Psychiatric exam: Present: normal affect, normal mood Skin exam: Present: warm, dry, intact Course Vital Signs 10/18/17 14:16 Temperature 98.4 F Pulse Rate 85 Respiratory 18 Rate Blood Pressure 101/74 O2 Sat by Pulse 98 Oximetry Medical Decision Making - Medical Decision Making Patient presents with a chief complaint of neck pain and headache. On initial evaluation, vitals are stable, patient is in no acute distress. Patient is neurologically intact. She states she gets headaches about 3 times a year. She states this is a little bit of a different pattern. Patient mostly complaining of neck pain. There are no meningeal signs present, no focal deficit. Patient given Toradol, Zofran, and Flexeril. Patient be evaluated with urinalysis given suprapubic tenderness. 3:46 PM On reevaluation, the patient states her headache is improved. Urinalysis is unremarkable. Patient now stating that she fell 2 days ago after slipping on wet floor in her kitchen. She says she did not lose consciousness. She denies any use of blood thinners. At this time, the likelihood of intracranial injury was thought to be less likely. I do not believe neuroimaging is warranted given improvement of the patient's headache, and nonfocal neuro exam. This time , patient stable for discharge. She was instructed to follow up with primary care 1-2 days, return to the emergency department if symptoms worsen or change. - Lab Data Lab Results 10/18/17 Range/Units 15:08 Urine Color Yellow Urine Appearance Cloudy H (Clear) Urine pH 6.0 (5.0-8.0) Ur Specific [place] 1.026 (1.001-1.035) Urine Protein Trace H (Negative) Urine Glucose (UA) Negative (Negative) Urine Ketones Negative (Negative) Urine Blood Negative (Negative) Urine Nitrite Negative (Negative) Urine Bilirubin Negative (Negative) Urine Urobilinogen <2.0 (<2.0) mg/dL Ur Leukocyte Esterase Trace H (Negative) Urine RBC 3 (0-5) /hpf Urine WBC 2 (0-5) /hpf Ur Squamous Epith Cells 5 H (0-4) /hpf Hyaline Casts 6 H (0-2) /lpf Urine Mucus Occasional H (None) /hpf Disposition Clinical Impression: Tension headache Disposition: HOME SELF-CARE Condition: Good Instructions: Acute Headache (ED) Is patient prescribed a controlled substance at d/c from ED?: No Referrals: Jerrod Ervin MD [Primary Care Provider] - 1-2 days Roselyn Dela Cruz MD [STAFF PHYSICIAN] - 1-2 days Jones Cuba MD [STAFF PHYSICIAN] - 1-2 days
[2017-10-18 15:22] LABS: Appearance,Urine Cloudy (Clear); Bilirubin,Urine Negative (Negative); Blood,Urine Negative (Negative); Color,Urine Yellow; Glucose,Urine (UA) Negative (Negative); Hyaline Casts,Urine 6 /lpf (0-2); Ketones,Urine Negative (Negative); Leukocyte Esterase,Urine Trace (Negative); Mucus,Urine Occasional /hpf; Nitrite,Urine Negative (Negative); Protein,Urine Trace (Negative); RBC,Urine 3 /hpf (0-5); Specific Gravity,Urine 1.026 (1.001-1.035); Squamous Epithelial Cell,Urine 5 /hpf (0-4); Urobilinogen,Urine <2.0 mg/dL (<2.0); WBC,Urine 2 /hpf (0-5)
[2017-10-18 16:34] VITALS: BP 142/64; PULSE 65; TEMP 97.8
== END 2017-10-18 16:34 | disposition home or self-care (01) ==
LOC: EC 14:04
DX: G44.209 Tension-type headache, unspecified, not intractable (principal); M54.2 Cervicalgia; J45.909 Unspecified asthma, uncomplicated; F17.200 Nicotine dependence, unspecified, uncomplicated; Z88.1 Allergy status to other antibiotic agents; Z88.2 Allergy status to sulfonamides; Z88.6 Allergy status to analgesic agent; Z88.5 Allergy status to narcotic agent; Z88.8 Allergy status to other drugs, medicaments and biological substances
CPT/HCPCS: 81001; 99283; 96372; J1885

== ENCOUNTER → 2017-11-10 | Outpatient (CLI) | payer OTHER ==
--- NOTE | 2017-11-10 08:43 | US ---
EXAMINATION TYPE: US transvaginal DATE OF EXAM: 11/10/2017 COMPARISON: CT CLINICAL HISTORY: N64.52 Breast Discharge, R10.2 Pelvic Pain. Pt states pelvic pain x 3 weeks, hyster ectomy TECHNIQUE: Transvaginal (TV). Pt not given prep for transabdominal so transvaginal performed EXAM MEASUREMENTS: Uterus: Surgically absent Endometrial Stripe: Surgically absent Right Ovary: 3.2 x 3.1 x 1.8 cm Left Ovary: 3.1 x 3.7 x 1.6 cm 3. Right Ovary: Probable involuting hemorrhagic cyst= 1.7 x 1.6 x 1.8 cm 4. Left Ovary: wnl 5. Bilateral Adnexa: wnl 6. Posterior cul-de-sac: wnl IMPRESSION: 1. Probable hemorrhagic cyst right ovary. 2. Postoperative changes of hysterectomy.
--- NOTE | 2017-11-10 10:37 | MM ---
Reason for exam: clinical finding. History: Took hormonal contraceptives for 5 years beginning at age 14. Physical Findings: Nurse did not find any significant physical abnormalities on exam. MG Diagnostic Mammo w CAD GUNNAR Bilateral CC, MLO, and XCCL view(s) were taken. The breast tissue is heterogeneously dense. This may lower the sensitivity of mammography. No suspicious calcifications are seen. There is no discrete abnormality. These results were verbally communicated with the patient and result sheet given to the patient on 11/10/17. ASSESSMENT: Negative, BI-RAD 1 RECOMMENDATION: Routine screening mammogram of both breasts at age 40. Manage patient on a clinical basis.
--- NOTE | 2017-11-11 18:43 | P.PN ---
Progress Note - Text Progress Note Date: 11/11/17 OUTPATIENT FOLLOW-UP NOTE TEST(S)/RESULTS: pelvic ultrasound done on 11/10/2017 shows a 1.8 cm right hemorrhagic type cyst, probable including cyst. METHOD OF NOTIFICATION: the patient was notified by phone. PATIENT COMMENTS: the patient continues to have pelvic pains DIAGNOSIS: probable including hemorrhagic ovarian cyst which may or may not be the cause for her pelvic pain. DISCUSSION: we discussed options including referral for possible surgical exploration such as laparoscopy. At this time will plan on conservative management. She continues to have spontaneous left breast discharge. Diagnostic mammogram was benign and prolactin was normal. PLAN: the patient will be referred to Dr. Bereket Liu for evaluation of the left breast discharge. Will plan a repeating the pelvic ultrasound in 2 to 3 months for reevaluation of the right ovary. The order slip will be mailed to the patient.
== END ==
LOC: RADMAMWWP 07:12
PROVIDERS: ATTEND Obstetrics & Gynecology
DX: N64.52 Nipple discharge (principal); Z90.710 Acquired absence of both cervix and uterus; O92.6 Galactorrhea
CPT/HCPCS: 36415; 76830; 77066; 84146

== ENCOUNTER → 2018-01-30 | Outpatient (CLI) | payer OTHER ==
--- NOTE | 2017-12-23 17:22 | P.PN ---
Progress Note - Text Progress Note Date: 12/23/17 The patient did not show up to her appointment with Dr. Bereket Liu. She was referred for a left breast discharge. Her appointment was on 12/12/2017. I have called her by phone. She states she will call as soon as she can to reschedule the appointment. The patient also had a probable right ovarian hemorrhagic cysts measuring 1.8 cm on a pelvic ultrasound done on 11/10/2017.. She states she has been having intermittent abdominal and pelvic pains. The plan was to repeat the pelvic ultrasound next month. The patient will be given a prescription for Anaprox DS she will take one PO Q 12 hours PRN for abdominal pain. She has the order slip to repeat the pelvic ultrasound next month. The prescription will be sent to [facility] pharmacy.
--- NOTE | 2018-01-20 17:01 | P.PN ---
Progress Note - Text Progress Note Date: 01/20/18 The patient has called in need for the order slip for her follow-up pelvic ultrasound. She is scheduled for an ultrasound on 01/30/2018 and this will be for follow-up regarding a right ovarian cyst and pelvic pain. The order slip will be mailed to the patient. I have also reminded her to call for an appointment with Dr. Bereket Liu regarding her nipple discharge. She states she has been busy and has not been able to make that appointment.
--- NOTE | 2018-01-30 14:07 | US ---
EXAMINATION TYPE: US pelvic complete DATE OF EXAM: 01/30/2018 COMPARISON: 11/10/2017 CLINICAL HISTORY: R10.2 Pelvic and perineal pain N83.0 Follicular.... RLQ pain since appendectomy thi s summer, hysterectomy TECHNIQUE: TA. Transabdominal sonographic images of the pelvis were acquired. Patient really did n ot want TV approach Date of LMP: hysterectomy EXAM MEASUREMENTS: Uterus: Surgically absent cm Endometrial Stripe: Surgically absent cm Right Ovary: 2.6 x 1.8 x 2.0 cm Left Ovary: 2.5 x 2.0 x 2.8 cm 1. Uterus: Surgically absent 2. Endometrium: Surgically absent 3. Right Ovary: 1.2 cm complex lesion which may represent the hemorrhagic cyst noted at previous exa m. This previously measured 1.7 x 1.6 x 1.8 cm. 4. Left Ovary: 0.9 cm simple appearing cyst 5. Bilateral Adnexa: wnl 6. Posterior cul-de-sac: wnl IMPRESSION: A 1.2 cm minimally complex right ovarian lesion may represent involution of the previousl y seen hemorrhagic cyst on the exam of 11/10/2017.
== END | disposition home or self-care (01) ==
LOC: RADUSWWP 13:28
PROVIDERS: ATTEND Obstetrics & Gynecology
DX: N83.8 Other noninflammatory disorders of ovary, fallopian tube and broad ligament (principal)
CPT/HCPCS: 76856

== ENCOUNTER → 2018-04-22 | Outpatient (CLI) | payer OTHER ==
--- NOTE | 2018-04-22 09:32 | NM ---
EXAMINATION TYPE: NM hepatobiliary w CCK DATE OF EXAM: 04/22/2018 COMPARISON: NONE HISTORY: Right upper quadrant pain TECHNIQUE: After the intravenous administration of 5.01 mCi Tc 99m Mebrofenin hepatobiliary scintigra phy is performed. Immediate images post injection. FINDINGS: There is satisfactory initial accumulation of tracer by the liver. The gallbladder is visualized wit hin 10 minutes. The small bowel activity is noted within 90 minutes. At one hour CCK was administer ed, patient was injected with 1.0 mcg of Kinevac, and gallbladder ejection fraction is calculated at 83 %, abnormally elevated. Therefore there is no scintigraphic evidence of cystic or common bile tyler t obstruction to suggest acute cholecystitis or gallbladder dyskinesia. IMPRESSION: 1. No scintigraphic evidence of acute or chronic cholecystitis. 2. Elevated ejection fraction, biliary hyperkinesia.
== END ==
LOC: RADNMMAIN 07:00
PROVIDERS: ATTEND Surgery
DX: R10.11 Right upper quadrant pain (principal)
CPT/HCPCS: 78227; A9537; J2805

== ENCOUNTER 2018-05-06 09:08 | Day surgery (SDC) | payer OTHER ==
[2018-05-01 13:44] VITALS: BMI 18.6
[~2018-05-06 09:08] MED LIST: CLINDAMYCIN 900 MG in DEXTROSE 5% IN WATER 50 ML IVPB ONE; GENTAMICIN 250 MG in SODIUM CHLORIDE 0.9% 100 ML IVPB ONE; HEPARIN SODIUM,PORCINE 5,000 UNIT/ML 1 ML VIAL SQ ONE; LACTATED RINGERS 1,000 ML IV SCH; LIDOCAINE 1% 20 ML VIAL (10MG/ML) FOR IV START INTRADERMA PRN; ONDANSETRON 4 MG/2 ML VIAL IVP ONE
[2018-05-06 10:00] VITALS: TEMP 97.8
[2018-05-06] MEDS ORDERED: LACTATED RINGERS 1,000 ML IV ONE ×2 (10:16→13:20)
[2018-05-06] MEDS ORDERED: DEXAMETHASONE SOD PHOS (MDV) 100 MG/10 ML VIAL IVP ONE (10:17)
[2018-05-06] MEDS ORDERED: SCOPOLAMINE 1.5MG/72HR PATCH TRANSDERM ONE (10:17)
--- NOTE | 2018-05-06 10:59 | P.GSHP ---
History of Present Illness H&P Date: 05/06/18 Chief Complaint: Epigastric and right upper quadrant pain Some 37-year-old female who presents today for laparoscopic cholestatic. Patient had complaints of right upper quadrant and epigastric pain. Her recent HIDA scan shows an elevated ejection fraction. Past Medical History Past Medical History: Asthma, Cancer, Osteoarthritis (OA) Additional Past Medical History / Comment(s): " BLOOD PRESSURE RUNS LOW." Chronic BACK/cervical spine problems, pain. "RT KIDNEY IS FLOATER." HX CA CELLS CERVIX. HX ANEMIA DURING . VARICOSE VEINS. C/O SEVERE PAIN LOWER ABD SINCE APPENDIX REMOVED 07/2017. History of Any Multi-Drug Resistant Organisms: None Reported Past Surgical History: Appendectomy, Section, Hysterectomy, Orthopedic Surgery Additional Past Surgical History / Comment(s): C-S X2. LT KNEE. LT Wrist Surgery. Past Anesthesia/Blood Transfusion Reactions: Previous Problems w/ Anesthesia, Family History of Problems w/ Anesthesia, Motion Sickness Additional Past Anesthesia/Blood Transfusion Reaction / Comment(s): ORNELAS FROM ANESTHESIA. SISTER SLOW TO WAKE UP. Past Psychological History: Anxiety, Panic Disorder Smoking Status: Current every day smoker Past Alcohol Use History: None Reported Past Drug Use History: None Reported - Past Family History Mother Family Medical History: Cancer Additional Family Medical History / Comment(s): of cancer Father Family Medical History: Hyperlipidemia, Hypertension, Myocardial Infarction ([place]) Additional Family Medical History / Comment(s): Paternal aunt and grandmother had uterine cancer. Medications and Allergies Home Medications Medication Instructions Recorded Confirmed Type Albuterol Inhaler [Ventolin Hfa 2 puff INHALATION Q6HR PRN 07/10/17 05/01/18 History Inhaler] ALPRAZolam [Xanax] 0.5 mg PO BID PRN 05/01/18 05/01/18 History Acetaminophen [Tylenol Extra 500 - 1,000 mg PO Q4-6H PRN 05/01/18 05/01/18 History Strength] Butalb/Acetaminophen/Caffeine 1 - 2 cap PO Q4HR PRN 05/01/18 05/01/18 History [Fioricet 50-300-40 mg Capsule] Allergies Allergy/AdvReac Type Severity Reaction Status Date / Time cephalexin monohydrate Allergy Unknown Verified 05/02/18 16:03 [From Keflex] cortisone Allergy Swelling Verified 05/02/18 16:03 gabapentin [From Neurontin] Allergy Unknown Verified 05/02/18 16:03 naproxen Allergy Dyspnea Verified 05/02/18 16:03 Sulfa (Sulfonamide Allergy Anaphylaxis Verified 05/02/18 16:03 Antibiotics) tramadol Allergy Rash/Hives Verified 05/02/18 16:03 Surgical - Exam Vital Signs Temp Pulse Resp BP Pulse Ox 97.8 F 87 18 123/55 100 05/06/18 09:58 05/06/18 09:58 05/06/18 09:58 05/06/18 09:58 05/06/18 09:58 - General well developed, well nourished, no distress - Eyes PERRL - ENT normal pinna - Neck no masses - Respiratory normal expansion - Cardiovascular Rhythm: regular - Abdomen Abdomen: soft, non tender Assessment and Plan Assessment: Right quadrant pain Abnormal ejection fraction Chronic cholecystitis We'll perform laparoscopic cholecystectomy.
[2018-05-06] MEDS ORDERED: KETOROLAC 30 MG/ML 1 ML VIAL ONE (11:11)
[2018-05-06] MEDS ORDERED: GLYCOPYRROLATE 0.2 MG/ML 2 ML VIAL ONE (11:11)
[2018-05-06] MEDS ORDERED: fentaNYL (PF) 50 MCG/ML 2 ML AMP ONE (11:11)
[2018-05-06] MEDS ORDERED: NEOSTIGMINE 1 MG/ML 10 ML VIAL ONE (11:11)
[2018-05-06] MEDS ORDERED: ROCURONIUM BROMIDE 10 MG/ML 10 ML VIAL IV ONE (11:11)
[2018-05-06] MEDS ORDERED: LIDOCAINE 1% INJ 10MG/ML (20 ML MDV) ONE (11:11)
[2018-05-06] MEDS ORDERED: PROPOFOL 10 MG/ML 20 ML VIAL IV ONE (11:11)
[2018-05-06] MEDS ORDERED: MIDAZOLAM 2 MG/2 ML VIAL ONE (11:11)
[2018-05-06] MEDS ORDERED: BUPIVACAIN-EPI 0.5%-1:200,000 30 ML VIAL SQ ONE (11:40)
--- NOTE | 2018-05-06 11:54 | P.OP ---
Date of Procedure: 05/06/18 Preoperative Diagnosis: Cholecystitis Postoperative Diagnosis: Cholecystitis Procedure(s) Performed: Laparoscopic cholecystectomy Anesthesia: ALEJO Surgeon: Cole Nelson Estimated Blood Loss (ml): 5 Pathology: other (Gallbladder) Condition: stable Disposition: PACU Description of Procedure: The patient was placed on the operating table. The patient received a general endotracheal tube anesthesia. The patients abdomen was prepped and draped in the usual sterile fashion. Through an infraumbilical stab incision, the fascia of the anterior abdominal wall was grasped with a pair of Kochers and then the Veress needle was placed in the peritoneal cavity. Position of the Veress needle was confirmed with positive drop test. The abdomen was then insufflated. After adequate insufflation, the 10 mm trocar was placed in the peritoneal cavity. Following this the laparoscope was placed in the peritoneal cavity. The patient was placed in the head-up, right side up position and then a 5 mm trocar was placed in the right lateral and right subcostal position under direct visualization. A 8 mm trocar was placed in the epigastric position. The gallbladder was grasped in the fundus and infundibulum. Traction on the gallbladder was placed in the lateral and the cephalad positions. The triangle of Calot was visualized.. The cystic duct was bluntly dissected until the union of the cystic duct and common bile duct was seen. The cystic duct was then divided and sealed with the Harmonic scissors. A PDS Endoloop was then placed throughout the cystic duct stump. The cystic artery divided and sealed with the Harmonic scissors. The gallbladder was then removed from the liver bed using Harmonic scissors. The gallbladder was then extracted through the epigastric port site. Operative field was checked for any bleeding spots and Harmonic scissors was used to coagulate the liver bed. The abdomen was irrigated. The trocars were removed. The skin was closed using interrupted 3-0 Vicryl suture. Dermabond dressing were applied. The patient tolerated the procedure well.
[2018-05-06] MEDS: fentaNYL (PF) 50 MCG/ML 2 ML AMP IV PRN ×2 (13:00→13:03)
[2018-05-06 13:19] VITALS: RESP 16
[2018-05-06] MEDS ORDERED: HYDROcodone/APAP 7.5-325MG 1 EACH TAB PO ONE (13:30)
[2018-05-06 14:31] VITALS: PULSE 67
[2018-05-06 14:32] VITALS: BP 106/70
== END 2018-05-06 14:40 | disposition home or self-care (01) ==
LOC: OR 09:08
PROVIDERS: ATTEND Surgery
DX: K81.1 Chronic cholecystitis (principal); J45.909 Unspecified asthma, uncomplicated; M19.90 Unspecified osteoarthritis, unspecified site; Z85.41 Personal history of malignant neoplasm of cervix uteri; N28.89 Other specified disorders of kidney and ureter; I95.9 Hypotension, unspecified; F41.9 Anxiety disorder, unspecified; F41.0 Panic disorder [episodic paroxysmal anxiety]; F17.200 Nicotine dependence, unspecified, uncomplicated; Z82.49 Family history of ischemic heart disease and other diseases of the circulatory system; Z80.49 Family history of malignant neoplasm of other genital organs; G89.29 Other chronic pain; M54.9 Dorsalgia, unspecified; M54.2 Cervicalgia; Z88.6 Allergy status to analgesic agent; Z88.1 Allergy status to other antibiotic agents; Z88.5 Allergy status to narcotic agent; Z88.2 Allergy status to sulfonamides; Z88.8 Allergy status to other drugs, medicaments and biological substances
CPT/HCPCS: 47562; J2250; J1644; J2710; J2405; J2001; J3010; J1885; J1580; J1100; J2704; 88304

== ENCOUNTER 2018-08-16 00:51 | Emergency (ER) | payer OTHER ==
[2018-08-16 01:14] VITALS: PULSE 77; RESP 18
[2018-08-16] MEDS ORDERED: MORPHINE SULFATE 4 MG/ML SYRINGE IM STA (02:34)
[2018-08-16] MEDS ORDERED: CYCLOBENZAPRINE 10MG STARTER 3 TAB BTL PO STA (02:34)
[2018-08-16] MEDS ORDERED: KETOROLAC 30 MG/ML 1 ML VIAL IM STA (02:34)
--- NOTE | 2018-08-16 02:36 | ED ---
Back Pain HPI - General Source: patient Limitations: no limitations, physical limitation <Amanda Rees - Last Filed: 08/16/18 20:08> <Abigail Lindsey - Last Filed: 08/17/18 05:43> - General Chief Complaint: Back Pain/Injury Stated Complaint: Neck and back pain Time Seen by Provider: 08/16/18 01:52 - History of Present Illness Initial Comments: 38-year-old female patient presents to the emergency department today for evaluation of neck and low back pain. Patient states that she has chronic neck and low back pain but symptoms of worsening over the last couple of days. She denies any injury to the area. Denies any new symptoms but states that she has experienced flares of similar pain in the past. She denies any radiation of the pain down her legs. Denies any numbness or tingling to the lower extremities. Denies any saddle anesthesia or loss of bowel or bladder control. Patient states that she has been seeing a chiropractor but feels it is making her pain worse. Patient denies any recent rash, fever, chills, shortness breath, chest pain, abdominal pain, nausea, vomiting, diarrhea, constipation, dizziness, weakn ess, hematuria, dysuria, urinary urgency, urinary frequency, headache, visual changes, or any other complaints. Patient states that she has been taking motrin at home without relief. Denies use of other pain medications. (Amanda Rees) - Related Data Home Medications Medication Instructions Recorded Confirmed Albuterol Inhaler [Ventolin Hfa 2 puff INHALATION Q6HR PRN 07/10/17 05/01/18 Inhaler] ALPRAZolam [Xanax] 0.5 mg PO BID PRN 05/01/18 05/01/18 Acetaminophen [Tylenol Extra 500 - 1,000 mg PO Q4-6H PRN 05/01/18 05/01/18 Strength] Butalb/Acetaminophen/Caffeine 1 - 2 cap PO Q4HR PRN 05/01/18 05/01/18 [Fioricet 50-300-40 mg Capsule] Previous Rx's Medication Instructions Recorded Docusate [Colace] 100 mg PO BID #20 capsule 05/06/18 HYDROcodone/APAP 7.5-325MG [[place] 1 tab PO Q6HR PRN 3 Days #10 tab 05/06/18 7.5-325] Cyclobenzaprine [Flexeril] 10 mg PO TID #15 tab 08/16/18 Allergies Allergy/AdvReac Type Severity Reaction Status Date / Time cephalexin monohydrate Allergy Unknown Verified 05/02/18 16:03 [From Keflex] cortisone Allergy Swelling Verified 05/02/18 16:03 gabapentin [From Neurontin] Allergy Unknown Verified 05/02/18 16:03 naproxen Allergy Dyspnea Verified 05/02/18 16:03 Sulfa (Sulfonamide Allergy Anaphylaxis Verified 05/02/18 16:03 Antibiotics) tramadol Allergy Rash/Hives Verified 05/02/18 16:03 Review of Systems ROS Other: All systems not noted in ROS Statement are negative. <Amanda Rees - Last Filed: 08/16/18 20:08> ROS Other: All systems not noted in ROS Statement are negative. <Abigail Lindsey - Last Filed: 08/17/18 05:43> ROS Statement: Those systems with pertinent positive or pertinent negative responses have been documented in the HPI. Past Medical History Past Medical History: Asthma, Cancer, Osteoarthritis (OA) Additional Past Medical History / Comment(s): " BLOOD PRESSURE RUNS LOW." Chronic BACK/cervical spine problems, pain. "RT KIDNEY IS FLOATER." HX CA CELLS CERVIX. HX ANEMIA DURING . VARICOSE VEINS. C/O SEVERE PAIN LOWER ABD SINCE APPENDIX REMOVED 07/2017. History of Any Multi-Drug Resistant Organisms: None Reported Past Surgical History: Appendectomy, Section, Cholecystectomy, Hystere ctomy, Orthopedic Surgery Additional Past Surgical History / Comment(s): C-S X2. LT KNEE. LT Wrist Surgery. Past Anesthesia/Blood Transfusion Reactions: Previous Problems w/ Anesthesia, Family History of Problems w/ Anesthesia, Motion Sickness Additional Past Anesthesia/Blood Transfusion Reaction / Comment(s): ORNELAS FROM ANESTHESIA. SISTER SLOW TO WAKE UP. Past Psychological History: Anxiety, Panic Disorder Smoking Status: Current every day smoker Past Alcohol Use History: None Reported Past Drug Use History: None Reported - Past Family History Mother Family Medical History: Cancer Additional Family Medical History / Comment(s): of cancer Father Family Medical History: Hyperlipidemia, Hypertension, Myocardial Infarction ([place]) Additional Family Medical History / Comment(s): Paternal aunt and grandmother had uterine cancer. <Amanda Rees M - Last Filed: 08/16/18 20:08> General Exam Limitations: no limitations, physical limitation General appearance: alert, in no apparent distress, other (Physical well- developed, well-nourished adult female patient in no acute distress. Vital signs upon presentation are temperature 98.5F, pulse 77, respirations 18, blood pressure 133/73, pulse ox 98% on room air.) Eye exam: Present: normal appearance, PERRL, EOMI. Absent: scleral icterus, conjunctival injection, periorbital swelling ENT exam: Present: normal exam, normal oropharynx, mucous membranes moist Neck exam: Present: normal inspection, full ROM. Absent: tenderness, meningismus, lymphadenopathy Respiratory exam: Present: normal lung sounds bilaterally. Absent: respiratory distress, wheezes, rales, rhonchi, stridor Cardiovascular Exam: Present: regular rate, normal rhythm, normal heart sounds. Absent: systolic murmur, diastolic murmur, rubs, gallop, clicks GI/Abdominal exam: Present: soft, normal bowel sounds. Absent: distended, tenderness, guarding, rebound, rigid Extremities exam: Present: normal inspection, full ROM, normal capillary refill, other (Skin to the lower extremities are pink, warm, dry. Cap refills less than 3 seconds. Pedal pulses 2+ and equal bilaterally.). Absent: tenderness, pedal edema, joint swelling, calf tenderness Back exam: Present: normal inspection. Absent: vertebral tenderness Neurological exam: Present: alert, oriented X3, CN II-XII intact Psychiatric exam: Present: normal affect, normal mood Skin exam: Present: warm, dry, intact, normal color. Absent: rash <Amanda Rees M - Last Filed: 08/16/18 20:08> Course Vital Signs 08/16/18 08/16/18 01:11 02:46 Temperature 98.5 F 98 F Pulse Rate 77 77 Respiratory 18 18 Rate Blood Pressure 133/73 100/62 O2 Sat by Pulse 98 97 Oximetry Medical Decision Making <Amanda Rees M - Last Filed: 08/16/18 20:08> <Abigail Lindsey P - Last Filed: 08/17/18 05:43> - Medical Decision Making 38-year-old female patient presents to the emergency department today for an increase in her chronic neck and back pain. Physical examination is unremarkable. She has no red flag symptoms of cauda equina. Patient is ambulatory. No fever or chills, vital signs are stable. Patient will be given an injection medication here in the emergency department for symptom relief. She'll be given prescription for Flexeril. Instructed to continue home medications. She is instructed to follow-up with her primary care physician for recheck in 1-2 days. Return parameters were discussed in detail. She verbalizes understanding and agrees with this plan. (Amanda Rees) I was available for consultation in the emergency department. The history and physical exam were done by the Midlevel Provider. Medical decision making was done by the Midlevel Provider. I have reviewed the chart, however was not consulted specifically or made aware of this patient by the above midlevel provider and did not personally evaluate, interact with, or disposition this patient on the day of their visit Chart was dictated using Maana dictation software. Attempts were made to correct any dictation errors however some typographical errors may persist. (Abigail Lindsey) Disposition Is patient prescribed a controlled substance at d/c from ED?: No Time of Disposition: 02:36 <Amanda Rees - Last Filed: 08/16/18 20:08> <Abigail Lindsey - Last Filed: 08/17/18 05:43> Clinical Impression: Chronic back pain, Chronic neck pain Disposition: HOME SELF-CARE Condition: Good Instructions (If sedation given, give patient instructions): Chronic Back Pain ([place]), Neck Pain (ED) Additional Instructions: Follow-up through primary care physician for any further pain medications. Discuss physical therapy or MRI for further evaluation of ear pain. Apply warm moist heat to the painful areas. Perform gentle stretching exercises. Return to the emergency department immediately for any new, worsening, or concerning symptoms. Prescriptions: Cyclobenzaprine [Flexeril] 10 mg PO TID #15 tab Referrals: Jerrod Ervin MD [Primary Care Provider] - 1-2 days
[2018-08-16 02:47] VITALS: BP 100/62; TEMP 98
== END 2018-08-16 02:55 | disposition home or self-care (01) ==
LOC: EC 00:51
DX: G89.29 Other chronic pain (principal); M54.2 Cervicalgia; M54.5 Low back pain; J45.909 Unspecified asthma, uncomplicated; F41.0 Panic disorder [episodic paroxysmal anxiety]; F17.200 Nicotine dependence, unspecified, uncomplicated; Z88.1 Allergy status to other antibiotic agents; Z88.2 Allergy status to sulfonamides; Z88.5 Allergy status to narcotic agent; Z88.8 Allergy status to other drugs, medicaments and biological substances; Z85.41 Personal history of malignant neoplasm of cervix uteri
CPT/HCPCS: 99283; 96372 ×2; J2270; J1885

== ENCOUNTER → 2018-11-13 | Outpatient (CLI) | payer OTHER ==
[2018-11-13 11:26] VITALS: BP 102/70; PULSE 61; RESP 18; TEMP 98.4; BMI 19.5
--- NOTE | 2018-11-13 11:54 | P.GSHP ---
History of Present Illness H&P Date: 11/13/18 Chief Complaint: nipple discharge The patient is a 38-year-old white female with a complaint of intermittent left breast tenderness and left nipple discharge. She had a bilateral mammogram performed on 11/10/2017 and this was negative BIRADS 1. She does not feel any masses or nodules in her breast. She has no history of any infection or trauma to the breast. The discharge is milky in nature. She is status post hysterectomy approximately 8 years ago for endometriosis, her ovaries were not removed. She has been having the left nipple discharge for approximately 8 years since her hysterectomy. The discharge is daily. It is noted in her bra. There is no blood in it. And she has slight tenderness in the left breast and nipple area. She had 3 pregnancies, 3 children. She did not breast-feed. The pain is We noted in the left breast. It is throughout the breast. It is only noted if she gets hit in the breast. It does not spread any place. The patient drinks Mountain Dew daily several 2 L. Patient smokes 1 pack per day, she is also exposed to secondhand smoke. She eats chocolate occasionally. Family History: mother: ? source metastatic at 44 sister: uterine cancer patient: pre-cancer of uterus at 14 Hormonal History: menarche: 12 breast fed: none, first born at 18 hysterectomy at 30 left ovaries BCP: 4 years hormones: cream after hysterectomy for 3 days Surgical history: 1. Hysterectomy 2.gallbladder 3. appy 4. 2 C-sections 5. left knee 6. conization prior to hysterectomy 7. left wrist Medical History: back and neck pain Social History: smoke: 1 PPD 22 years alcohol: rare drugs: none - Constitutional Constitutional: Denies chills, Denies fever - EENT Eyes: denies blurred vision, denies pain Ears: deny: decreased hearing, tinnitus Ears, nose, mouth and throat: Reports headache - Breasts Breasts: bilateral: as per HPI - Cardiovascular Cardiovascular: Denies chest pain, Denies shortness of breath - Respiratory Comment: smoker, asthma - Gastrointestinal Comment: IBS Gastrointestinal: Reports constipation, Reports diarrhea, Denies abdominal pain, Denies nausea, Denies vomiting - Genitourinary (Female) Genitourinary: Denies dysuria, Denies hematuria - Menstruation Menstruation: Reports post hysterectomy - Musculoskeletal Comment: back and neck pain follows with neurologist - Integumentary Integumentary: Denies pruritus, Denies rash - Neurological Neurological: Reports numbness, Reports weakness - Psychiatric Psychiatric: Reports anxiety, Denies depression - Endocrine Endocrine: Reports weight change - Hematologic/Lymphatic Comment: none - Allergic/Immunologic Allergic/Immunologic: Reports seasonal allergies Past Medical History Past Medical History: Asthma, Cancer, Osteoarthritis (OA) Additional Past Medical History / Comment(s): " BLOOD PRESSURE RUNS LOW." Chronic BACK/cervical spine problems, pain. "RT KIDNEY IS FLOATER." HX CA CELLS CERVIX. HX ANEMIA DURING . VARICOSE VEINS. C/O SEVERE PAIN LOWER ABD SINCE APPENDIX REMOVED 07/2017. History of Any Multi-Drug Resistant Organisms: None Reported Past Surgical History: Appendectomy, Section, Cholecystectomy, Hysterectomy, Orthopedic Surgery Additional Past Surgical History / Comment(s): C-S X2. LT KNEE. LT Wrist Surgery. Past Anesthesia/Blood Transfusion Reactions: Previous Problems w/ Anesthesia, Family History of Problems w/ Anesthesia, Motion Sickness Additional Past Anesthesia/Blood Transfusion Reaction / Comment(s): ORNELAS FROM ANESTHESIA. SISTER SLOW TO WAKE UP. Past Psychological History: Anxiety, Panic Disorder Smoking Status: Current every day smoker Past Alcohol Use History: None Reported Additional Past Alcohol Use History / Comment(s): SMOKING SINCE AGE 13, WAS 2 PPD, NOW 1 PPD. Past Drug Use History: None Reported - Past Family History Mother Family Medical History: Cancer Additional Family Medical History / Comment(s): of cancer Father Family Medical History: Hyperlipidemia, Hypertension, Myocardial Infarction ([place]) Additional Family Medical History / Comment(s): Paternal aunt and grandmother had uterine cancer. Medications and Allergies Home Medications Medication Instructions Recorded Confirmed Type HYDROcodone/APAP 7.5-325MG [[place] 1 tab PO Q6HR PRN 3 Days #10 tab 05/06/18 11/13/18 Rx 7.5-325] Allergies Allergy/AdvReac Type Severity Reaction Status Date / Time cephalexin monohydrate Allergy Unknown Verified 11/13/18 11:26 [From Keflex] cortisone Allergy Swelling Verified 11/13/18 11:26 gabapentin [From Neurontin] Allergy Unknown Verified 11/13/18 11:26 naproxen Allergy Dyspnea Verified 11/13/18 11:26 Sulfa (Sulfonamide Allergy Anaphylaxis Verified 11/13/18 11:26 Antibiotics) tramadol Allergy Rash/Hives Verified 11/13/18 11:26 Surgical - Exam Vital Signs Temp Pulse Resp BP Pulse Ox 98.4 F 61 18 102/70 95 11/13/18 11:22 11/13/18 11:22 11/13/18 11:22 11/13/18 11:22 11/13/18 11:22 BMI 19.5 - General thin - Eyes normal ocular movement - ENT no hearing loss, no congestion - Neck no masses, trachea midline - Respiratory normal respiratory effort, clear to auscultation - Cardiovascular Rhythm: regular Heart Sounds: normal: S1, S2 - Abdomen Abdomen: soft, non tender, no guarding, no rigid, no rebound - Integumentary normal turgor - Neurologic no disoriented, no combative - Musculoskeletal normal gait, normal posture - Psychiatric oriented to time, oriented to person, oriented to place, speech is normal, memory intact breast exam: right breast: Multi-positional exam fibrocystic changes, initial exam revealed one small drop of what looked like fibrocystic fluid from nipple area was not reproduced no dominant masses or nodules of concern Right axilla: No adenopathy of concern Left breast: Multi-positional exam fibrocystic changes, despite manipulation no discharge from the nipple area at this time Left axilla: No adenopathy of concern The left breast appears to be slightly larger than the right breast bra: 34B Results Mammogram from 2018 results reviewed Assessment and Plan Assessment: Impression: 1. Left breast discomfort 2. Bilateral nipple discharge greater on the left 3. Fibrocystic breast changes 4. Left breast mastodynia 5. Asymmetry of the breast with the left being larger than the right 6. Patient drinks large amounts of caffeine, and is exposed to nicotine smoker and secondhand smoke 7. Family history of cancer 8. Anxiety 9. Back and neck pain degenerative disc disease I discussed with the patient and her [id number] the most likely cause of breast pain is fibrocystic disease and related to the caffeine and nicotine exposure. She will consider decreasing this exposure. The nipple discharge is most likely fibrocystic in nature. I'm unable to produce any discharge for testing guaiac at this time. The patient has not had any recent radiographic studies of the breast was recommended bilateral mammogram and bilateral breast ultrasound. She will follow up after these studies are done. Plan: 1. Bilateral mammogram and ultrasound/than follow up 2. Decrease caffeine and nicotine exposure 3. A book on breast pain is presented to the patient CC: DR. Quintero
== END | disposition home or self-care (01) ==
LOC: WWCWWP 11:03
PROVIDERS: ATTEND Surgery
DX: Z53.9 Procedure and treatment not carried out, unspecified reason (principal)

== ENCOUNTER → 2019-04-20 | Outpatient (CLI) | payer OTHER ==
[2019-04-20 11:26] VITALS: BP 93/62; PULSE 94; RESP 18; TEMP 97.7
--- NOTE | 2019-04-20 12:13 | P.HPOB ---
History of Present Illness H&P Date: 04/20/19 Chief Complaint: The patient is here for her routine gynecologic exam. This is a 38-year-old with an LMP of 2012. She is status post vaginal hysterectomy for benign reasons. The patient has a history of a right ovarian cyst measuring approximately 1 cm by ultrasound. She states she has occasional low abdominal and pelvic pain if she walks long distances. She states the pain is on both sides and can be a pressure, cramping and sharp sensation at the same time. Most days she does not notice any pain, but when she is walking longer distances the pain can be a 10 out of 10. It is currently 0 out of 10. She continues to have a small amount of occasional left breast discharge and sees Dr. Bereket Liu for this. Review of Systems She has gained about 13 pounds over the past year and a half. She denies respiratory, cardiac, or GI problems. Past Medical History Past Medical History: Asthma, Cancer, Osteoarthritis (OA) Additional Past Medical History / Comment(s): Chronic BACK/cervical spine problems, pain. Pelvic right kidney. VARICOSE VEINS. Chronic low abdominal pain SINCE APPENDIX REMOVED 07/2017. 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 Cryotherapy for cervical dysplasia at age 15. History of Any Multi-Drug Resistant Organisms: None Reported Past Surgical History: Appendectomy, Section, Cholecystectomy, Hysterectomy, Orthopedic Surgery Additional Past Surgical History / Comment(s): C-S X2. LT KNEE. LT Wrist Surgery. Cryotherapy of the cervix at age 15. Vaginal hysterectomy 2012. Past Anesthesia/Blood Transfusion Reactions: Previous Problems w/ Anesthesia, Family History of Problems w/ Anesthesia, Motion Sickness Additional Past Anesthesia/Blood Transfusion Reaction / Comment(s): ORNELAS FROM ANESTHESIA. SISTER SLOW TO WAKE UP. Past Psychological History: Anxiety, Panic Disorder Smoking Status: Current every day smoker (One pack per day) Past Alcohol Use History: None Reported Additional Past Alcohol Use History / Comment(s): SMOKING SINCE AGE 13, WAS 2 PPD, NOW 1 PPD. Past Drug Use History: None Reported Additional History: She has been since 2014 and this is her second marriage. She is planning on getting a divorce. She does not work outside of the home. - Past Family History Mother Family Medical History: Cancer Additional Family Medical History / Comment(s): of ovarian cancer Father Family Medical History: Hyperlipidemia, Hypertension, Myocardial Infarction ([place]) Additional Family Medical History / Comment(s): Paternal aunt and grandmother had uterine cancer. Medications and Allergies Home Medications Medication Instructions Recorded Confirmed Type HYDROcodone/APAP 7.5-325MG [[place] 1 tab PO Q6HR PRN 3 Days #10 tab 05/06/1804/10 Rx 7.5-325] Cyclobenzaprine [Flexeril] 10 mg PO BID 04/20/19 04/20/19 History buPROPion XL [Wellbutrin Xl] 150 mg PO DAILY 04/20/19 04/20/19 History Allergies Allergy/AdvReac Type Severity Reaction Status Date / Time cephalexin monohydrate Allergy Unknown Verified 04/20/19 11:27 [From Keflex] cortisone Allergy Swelling Verified 04/20/19 11:27 gabapentin [From Neurontin] Allergy Unknown Verified 04/20/19 11:27 naproxen Allergy Dyspnea Verified 04/20/19 11:27 Sulfa (Sulfonamide Allergy Anaphylaxis Verified 04/20/19 11:27 Antibiotics) tramadol Allergy Rash/Hives Verified 04/20/19 11:27 Exam Vital Signs Temp Pulse Resp BP Pulse Ox 04/20/19 11:20 97.7 F 94 18 93/62 96 Intake and Output 04/19/19 04/20/19 04/20/19 22:59 06:59 14:59 Other: Weight 62.596 kg Height 5 feet 6 inches, weight 138 pounds, BMI 22.3. This is a well-developed well-nourished white female who is alert and oriented times 3 in no acute distress. HEENT: Within normal limits. NECK: Supple without mass or thyromegaly. CHEST AND LUNGS: Clear to auscultation. HEART: Regular rate and rhythm. BREASTS: Are without mass or discharge. There is left breast central nipple inversion. The patient states it has been this way since she was a child. AXILLARY EXAM: Negative for adenopathy. BACK: Negative for CVA tenderness. ABDOMEN: Soft, nontender, without palpable masses. PELVIC EXAM: External genitalia appears normal. Vagina appears normal. There is no evidence of prolapse. Bimanual examination is negative for mass, but there is mild central pelvic and right pelvic tenderness RECTAL EXAM: Rectovaginal exam is negative for mass or tenderness. EXTREMITIES: Nontender. IMPRESSION: 1. 38-year-old female who is status post vaginal hysterectomy for benign reasons. 2. Intermittent low abdominal and pelvic pains with increased ambulation. Di fferential diagnosis will include ovarian cyst pain, pelvic adhesions, or non- gynecologic pain. 3. Mild central and right pelvic tenderness with bimanual examination. 4. History of small right ovarian cyst by previous ultrasound. 5. Family history of ovarian cancer in her mother. PLAN: 1. Pap smears have been discontinued. 2. Self breast awareness was discussed with the patient. She will follow-up with Dr. Bereket Liu regarding left nipple discharge. 3. Pelvic ultrasound was recommended and the order slip was given to the patient for this. We will also continue yearly pelvic ultrasounds because of her family history. 4. She is to try to avoid particular activities it seemed to make the pelvic pains worse. 5. She was advised to return in one year for her annual well woman exam and as needed.
== END | disposition home or self-care (01) ==
LOC: WWCWWP 11:14
PROVIDERS: ATTEND Obstetrics & Gynecology
DX: Z53.9 Procedure and treatment not carried out, unspecified reason (principal)

== ENCOUNTER 2019-10-06 19:56 | Emergency (ER) | payer OTHER ==
[2019-10-06] MEDS ORDERED: SODIUM CHLORIDE 0.9% 1,000 ML IV ONE (20:33)
[2019-10-06] MEDS ORDERED: HYDROmorphone 0.5 MG/0.5 ML SYRINGE IVP STA (20:33)
[2019-10-06] MEDS ORDERED: ONDANSETRON 4 MG/2 ML VIAL IVP STA (20:33)
[2019-10-06] MEDS ORDERED: SODIUM CHLORIDE 0.9% 1,000 ML IV SCH (20:45)
[2019-10-06 21:13] LABS: Basophils % (A) 0 %; Eosinophils # (A) 0.3 k/uL (0-0.7); Eosinophils % (A) 1 %; HCT 39.4 % (34.0-46.0); HGB 12.9 gm/dL (11.4-16.0); Lymphocytes # (A) 1.8 k/uL (1.0-4.8); Lymphocytes % (A) 10 %; MCH 31.6 pg (25.0-35.0); MCHC 32.8 g/dL (31.0-37.0); MCV 96.5 fL (80.0-100.0); Mean Platelet Volume 7.5; Monocytes # (A) 0.7 k/uL (0-1.0); Monocytes % (A) 4 %; Neutrophils # (A) 15.2 k/uL (1.3-7.7); Neutrophils % (A) 84 %; Platelet Count 325 k/uL (150-450); RBC 4.08 m/uL (3.80-5.40); RDW 12.8 % (11.5-15.5)
[2019-10-06 21:27] LABS: ALT 14 U/L (4-34); AST 26 U/L (14-36); African American GFR (CKD) >90 (>60 ml/min/1.73 sqM); Alkaline Phosphatase 68 U/L (38-126); Amylase <30 U/L (30-110); Anion Gap 5 mmol/L; Blood Urea Nitrogen 7 mg/dL (7-17); Calcium 9.3 mg/dL (8.4-10.2); Carbon Dioxide 26 mmol/L (22-30); Chloride 105 mmol/L (98-107); Glucose 106 mg/dL (74-99); Lipase 50 U/L (23-300); Non-African American GFR(CKD) >90 (>60 ml/min/1.73 sqM); Sodium 136 mmol/L (137-145); Total Bilirubin 0.6 mg/dL (0.2-1.3); Total Protein 6.5 g/dL (6.3-8.2)
[2019-10-06 21:37] LABS: Appearance,Urine Cloudy (Clear); Bilirubin,Urine Negative (Negative); Blood,Urine Negative (Negative); Color,Urine Yellow; Glucose,Urine (UA) Negative (Negative); Ketones,Urine Negative (Negative); Leukocyte Esterase,Urine Trace (Negative); Mucus,Urine Rare /hpf; Nitrite,Urine Negative (Negative); Protein,Urine Trace (Negative); RBC,Urine 9 /hpf (0-5); Specific Gravity,Urine 1.012 (1.001-1.035); Squamous Epithelial Cell,Urine 4 /hpf (0-4); Urobilinogen,Urine <2.0 mg/dL (<2.0); WBC,Urine 11 /hpf (0-5)
--- NOTE | 2019-10-06 22:11 | CT ---
EXAMINATION TYPE: CT abdomen pelvis w con DATE OF EXAM: 10/06/2019 COMPARISON: 08/29/2017 HISTORY: LLQ pain CT DLP: 694 mGycm Automated exposure control for dose reduction was used. CONTRAST: Performed with IV Contrast, patient injected with 100 mL of Isovue 300. Lung bases are clear. There is no pleural effusion. Heart size is normal. There is no pericardial eff usion. Liver spleen pancreas appear normal. Bile ducts are not dilated. Gallbladder is not dilated. There is no adrenal mass. There is right side pelvic kidney which appears in the mid pelvis. Left kid lew is in normal position. There is no retroperitoneal adenopathy. Bladder distends smoothly. There i s no free fluid in the pelvis. There is no evidence of a pelvic mass. There is no hydronephrosis. The re is 2.7 cm oval-shaped density on the left lateral pelvic sidewall there is probably the left ovary . There is no evidence of thickened appendix. Appendix is not definitely seen. There is hysterectomy. T here is no evidence of a pelvic mass. There is no free fluid in the pelvis. There is no mesenteric ed mykel. There is no ascites or free air. There is no evidence of a bowel obstruction. Lumbar vertebra hoffman ve normal spacing and alignment. The posterior elements are intact. There is no compression fracture. Bony pelvis is intact. IMPRESSION: No acute abnormality of the abdomen and pelvis. No significant change compared to old exam.
[2019-10-06] MEDS ORDERED: KETOROLAC 15 MG/ML 1 ML VIAL IVP STA (22:33)
--- NOTE | 2019-10-06 22:35 | ED ---
Abdominal Pain HPI - General Chief Complaint: Abdominal Pain Stated Complaint: Flank Pain Source: patient, family Mode of arrival: ambulatory Limitations: no limitations - History of Present Illness Initial Comments: 39 year old feel presenting today for chief complaint of left flank pain. Patient states that she's had left flank pain for the past few days. Patient states that comes and goes she's not sure she is a urinary tract infection or not. She denies fever chills general malaise chest pain shortness of breath or. Deep inspiration. Patient states thatshe has had kidney stones in the past and is not sure if this is what is causing the pain. Patient states that sharp in nature coming going decreasing and increasing intensity. Patient states she is ALLERGIC naproxen but has tolerated Toradol in the past. Patient denies additional complaints upon arrival she appears well nontoxic no acute distress. - Related Data Home Medications Medication Instructions Recorded Confirmed Cyclobenzaprine [Flexeril] 10 mg PO BID 04/20/19 10/06/19 HYDROcodone/APAP 7.5-325MG [[place] 1 tab PO TID PRN 10/06/19 10/06/19 7.5-325] Previous Rx's Medication Instructions Recorded Nitrofurantoin Monohyd/M-Cryst 100 mg PO Q12HR 5 Days #10 cap 10/06/19 [Macrobid] Allergies Allergy/AdvReac Type Severity Reaction Status Date / Time cephalexin monohydrate Allergy Unknown Verified 10/06/19 21:23 [From Keflex] cortisone Allergy Swelling Verified 10/06/19 21:23 gabapentin [From Neurontin] Allergy Unknown Verified 10/06/19 21:23 naproxen Allergy Dyspnea Verified 10/06/19 21:23 Sulfa (Sulfonamide Allergy Anaphylaxis Verified 10/06/19 21:23 Antibiotics) tramadol Allergy Rash/Hives Verified 10/06/19 21:23 Review of Systems ROS Statement: Those systems with pertinent positive or pertinent negative responses have been documented in the HPI. ROS Other: All systems not noted in ROS Statement are negative. Past Medical History Past Medical History: Asthma, Cancer, Osteoarthritis (OA) Additional Past Medical History / Comment(s): Chronic BACK/cervical spine problems, pain. Pelvic right kidney. VARICOSE VEINS. Chronic low abdominal pain SINCE APPENDIX REMOVED 07/2017. 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 Cryotherapy for cervical dysplasia at age 15. History of Any Multi-Drug Resistant Organisms: None Reported Past Surgical History: Appendectomy, Section, Cholecystectomy, Hysterectomy, Orthopedic Surgery Additional Past Surgical History / Comment(s): C-S X2. LT KNEE. LT Wrist Surgery. Cryotherapy of the cervix at age 15. Vaginal hysterectomy 2012. Past Anesthesia/Blood Transfusion Reactions: Previous Problems w/ Anesthesia, Family History of Problems w/ Anesthesia, Motion Sickness Additional Past Anesthesia/Blood Transfusion Reaction / Comment(s): ORNELAS FROM ANESTHESIA. SISTER SLOW TO WAKE UP. Past Psychological History: Anxiety, Panic Disorder Smoking Status: Current every day smoker Past Alcohol Use History: Rare Past Drug Use History: None Reported - Past Family History Mother Family Medical History: Cancer Additional Family Medical History / Comment(s): of ovarian cancer Father Family Medical History: Hyperlipidemia, Hypertension, Myocardial Infarction ([place]) Additional Family Medical History / Comment(s): Paternal aunt and grandmother had uterine cancer. General Exam - General Exam Comments Initial Comments: General: The patient is awake and alert, in no distress Eye: +3 mm pupils are equal, round and reactive to light, extra-ocular movements are intact. No nystagmus. There is normal conjunctiva bilaterally. No signs of icterus. Ears, nose, mouth and throat: There are moist mucous membranes and no oral lesions. Neck: The neck is supple, there is no tenderness or JVD. Cardiovascular: There is a regular rate and rhythm. No murmur, rub or gallop is appreciated. Respiratory: Lungs are clear to auscultation, respirations are non-labored, breath sounds are equal. No wheezes, stridor, rales, or rhonchi. Gastrointestinal: Soft, non-distended, non-tender abdomen without masses or organomegaly noted. There is no rebound or guarding present. No CVA tenderness. Musculoskeletal: Normal ROM, no tenderness. Strength 5/5. Sensation intact. Radial pulses equal bilaterally 2+. Neurological: A&O x 3. CN II-XII intact grossly, There are no obvious motor or sensory deficits. Coordination appears grossly intact. Speech is normal. Skin: Skin is warm and dry and no rashes or lesions are noted. Psychiatric: Cooperative, appropriate mood & affect, normal judgment. Limitations: no limitations Course Vital Signs 10/06/19 10/06/19 20:01 23:06 Temperature 98.9 F 98.3 F Pulse Rate 103 H 93 Respiratory 20 18 Rate Blood Pressure 97/59 94/56 O2 Sat by Pulse 99 98 Oximetry Medical Decision Making - Medical Decision Making 39-year-old feel presents for left flank pain history of kidney stones. CT no obvious stone. Patient urinalysis reveals 9 red blood cells. There is few bacteria. No overt signs of infection. Patient be treated with Macrobid as she states that this feels somewhat similar to when she's had ear infections in the past. Patient does have leukocytosis. However she appears nontoxic no acute distress. Patient BP on lower aspect of normal patient states this is normal on chart review this does appear to be the case. Patient pain decreased. Patient states she is comfortable with discharge at this time with PCP f/u and return for worsening symptoms. Discussed case with Elvis Honeycutt who is agreeable to care plan and discharge. - Lab Data Result diagrams: 10/06/19 20:46 10/06/19 20:46 Lab Results 10/06/19 10/06/19 10/06/19 Range/Units 20:46 20:46 20:46 WBC 18.0 H (3.8-10.6) k/uL RBC 4.08 (3.80-5.40) m/uL Hgb 12.9 (11.4-16.0) gm/dL Hct 39.4 (34.0-46.0) % MCV 96.5 (80.0-100.0) fL MCH 31.6 (25.0-35.0) pg MCHC 32.8 (31.0-37.0) g/dL RDW 12.8 (11.5-15.5) % Plt Count 325 (150-450) k/uL Neutrophils % 84 % Lymphocytes % 10 % Monocytes % 4 % Eosinophils % 1 % Basophils % 0 % Neutrophils # 15.2 H (1.3-7.7) k/uL Lymphocytes # 1.8 (1.0-4.8) k/uL Monocytes # 0.7 (0-1.0) k/uL Eosinophils # 0.3 (0-0.7) k/uL Basophils # 0.0 (0-0.2) k/uL Sodium (137-145) mmol/L Potassium (3.5-5.1) mmol/L Chloride (98-107) mmol/L Carbon Dioxide (22-30) mmol/L Anion Gap mmol/L BUN (7-17) mg/dL Creatinine (0.52-1.04) mg/dL Est GFR (CKD-EPI)AfAm (>60 ml/min/1.73 sqM) Est GFR (CKD-EPI)NonAf (>60 ml/min/1.73 sqM) Glucose (74-99) mg/dL Calcium (8.4-10.2) mg/dL Total Bilirubin (0.2-1.3) mg/dL AST (14-36) U/L ALT (4-34) U/L Alkaline Phosphatase (38-126) U/L Total Protein (6.3-8.2) g/dL Albumin (3.5-5.0) g/dL Amylase (30-110) U/L Lipase (23-300) U/L Urine Color Yellow Urine Appearance Cloudy H (Clear) Urine pH 8.0 (5.0-8.0) Ur Specific [place] 1.012 (1.001-1.035) Urine Protein Trace H (Negative) Urine Glucose (UA) Negative (Negative) Urine Ketones Negative (Negative) Urine Blood Negative (Negative) Urine Nitrite Negative (Negative) Urine Bilirubin Negative (Negative) Urine Urobilinogen <2.0 (<2.0) mg/dL Ur Leukocyte Esterase Trace H (Negative) Urine RBC 9 H (0-5) /hpf Urine WBC 11 H (0-5) /hpf Ur Squamous Epith Cells 4 (0-4) /hpf Urine Mucus Rare H (None) /hpf Urine HCG, Qual Not Detected (Not Detectd) 10/06/19 Range/Units 20:46 WBC (3.8-10.6) k/uL RBC (3.80-5.40) m/uL Hgb (11.4-16.0) gm/dL Hct (34.0-46.0) % MCV (80.0-100.0) fL MCH (25.0-35.0) pg MCHC (31.0-37.0) g/dL RDW (11.5-15.5) % Plt Count (150-450) k/uL Neutrophils % % Lymphocytes % % Monocytes % % Eosinophils % % Basophils % % Neutrophils # (1.3-7.7) k/uL Lymphocytes # (1.0-4.8) k/uL Monocytes # (0-1.0) k/uL Eosinophils # (0-0.7) k/uL Basophils # (0-0.2) k/uL Sodium 136 L (137-145) mmol/L Potassium 4.0 (3.5-5.1) mmol/L Chloride 105 (98-107) mmol/L Carbon Dioxide 26 (22-30) mmol/L Anion Gap 5 mmol/L BUN 7 (7-17) mg/dL Creatinine 0.67 (0.52-1.04) mg/dL Est GFR (CKD-EPI)AfAm >90 (>60 ml/min/1.73 sqM) Est GFR (CKD-EPI)NonAf >90 (>60 ml/min/1.73 sqM) Glucose 106 H (74-99) mg/dL Calcium 9.3 (8.4-10.2) mg/dL Total Bilirubin 0.6 (0.2-1.3) mg/dL AST 26 (14-36) U/L ALT 14 (4-34) U/L Alkaline Phosphatase 68 (38-126) U/L Total Protein 6.5 (6.3-8.2) g/dL Albumin 4.0 (3.5-5.0) g/dL Amylase <30 L (30-110) U/L Lipase 50 (23-300) U/L Urine Color Urine Appearance (Clear) Urine pH (5.0-8.0) Ur Specific [place] (1.001-1.035) Urine Protein (Negative) Urine Glucose (UA) (Negative) Urine Ketones (Negative) Urine Blood (Negative) Urine Nitrite (Negative) Urine Bilirubin (Negative) Urine Urobilinogen (<2.0) mg/dL Ur Leukocyte Esterase (Negative) Urine RBC (0-5) /hpf Urine WBC (0-5) /hpf Ur Squamous Epith Cells (0-4) /hpf Urine Mucus (None) /hpf Urine HCG, Qual (Not Detectd) Disposition Clinical Impression: Left flank pain Disposition: HOME SELF-CARE Condition: Good Instructions (If sedation given, give patient instructions): Flank Pain (ED) Additional Instructions: Please use medication as discussed. Please follow-up with family doctor in the next 2 days. Please return to emergency room if the symptoms increase or worsen or for any other concerns. Prescriptions: Nitrofurantoin Monohyd/M-Cryst [Macrobid] 100 mg PO Q12HR 5 Days #10 cap Is patient prescribed a controlled substance at d/c from ED?: No Referrals: Bridger Menon MD [Primary Care Provider] - 1-2 days Time of Disposition: 22:35
[2019-10-06 23:16] VITALS: BP 94/56; PULSE 93; RESP 18; TEMP 98.3
== END 2019-10-06 23:13 | disposition home or self-care (01) ==
LOC: EC 19:56
DX: R10.9 Unspecified abdominal pain (principal); F17.200 Nicotine dependence, unspecified, uncomplicated; Z88.1 Allergy status to other antibiotic agents; Z88.2 Allergy status to sulfonamides; Z88.5 Allergy status to narcotic agent; Z88.8 Allergy status to other drugs, medicaments and biological substances; Z88.6 Allergy status to analgesic agent
CPT/HCPCS: 99284; 96374; 96375 ×2; 96361 ×2; 36415; 80053; 82150; 83690; 85025; 81001; 81025; 87086; 74177; J2405; J1885; J1170; Q9967; 87077; 87186

== ENCOUNTER 2019-10-20 13:14 | Emergency (ER) | payer OTHER ==
[2019-10-20 13:26] VITALS: BP 119/79; PULSE 102; RESP 18; TEMP 98.5
[2019-10-20] MEDS ORDERED: KETOROLAC 15 MG/ML 1 ML VIAL IM STA (13:54)
[2019-10-20] MEDS ORDERED: MORPHINE SULFATE 4 MG/ML SYRINGE IM STA (13:54)
[2019-10-20] MEDS ORDERED: ACET/COD 300 MG/30 MG STARTER PACK 6 TAB BTL PO STA (14:06)
[2019-10-20] MEDS ORDERED: IBUPROFEN 600 MG STARTER PACK 4 TAB BTL PO STA (14:06)
--- NOTE | 2019-10-20 14:08 | ED ---
General Adult HPI - General Chief complaint: ENT Stated complaint: Mouth Pain,Teeth Pulled Time Seen by Provider: 10/20/19 13:49 Source: patient Mode of arrival: ambulatory Limitations: no limitations - History of Present Illness Initial comments: 39-year-old female patient presents to the emergency department today for evaluation of pain after dental procedure. Around 10:00 this morning patient had 4 teeth removed from the front lower. Patient states that they did not give her any pain medication. States once the numbing medicine while she developed significant burning pain to the area. States that she has not taken anything for her symptoms. Is unable to tolerate ice. She denies any fever or chills. Denies any significant bleeding. - Related Data Home Medications Medication Instructions Recorded Confirmed Cyclobenzaprine [Flexeril] 10 mg PO BID 04/20/19 10/06/19 HYDROcodone/APAP 7.5-325MG [[place] 1 tab PO TID PRN 10/06/19 10/06/19 7.5-325] Previous Rx's Medication Instructions Recorded Nitrofurantoin Monohyd/M-Cryst 100 mg PO Q12HR 5 Days #10 cap 10/06/19 [Macrobid] Ibuprofen [Motrin] 600 mg PO Q8HR PRN #30 tab 10/20/19 Allergies Allergy/AdvReac Type Severity Reaction Status Date / Time cephalexin monohydrate Allergy Unknown Verified 10/20/19 13:26 [From Keflex] cortisone Allergy Swelling Verified 10/20/19 13:26 gabapentin [From Neurontin] Allergy Unknown Verified 10/20/19 13:26 naproxen Allergy Dyspnea Verified 10/20/19 13:26 Sulfa (Sulfonamide Allergy Anaphylaxis Verified 10/20/19 13:26 Antibiotics) tramadol Allergy Rash/Hives Verified 10/20/19 13:26 Review of Systems ROS Statement: Those systems with pertinent positive or pertinent negative responses have been documented in the HPI. ROS Other: All systems not noted in ROS Statement are negative. Past Medical History Past Medical History: Asthma, Cancer, Osteoarthritis (OA) Additional Past Medical History / Comment(s): Chronic BACK/cervical spine problems, pain. Pelvic right kidney. VARICOSE VEINS. Chronic low abdominal pain SINCE APPENDIX REMOVED 07/2017. 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 Cryotherapy for cervical dysplasia at age 15. History of Any Multi-Drug Resistant Organisms: None Reported Past Surgical History: Appendectomy, Section, Cholecystectomy, Hysterectomy, Orthopedic Surgery Additional Past Surgical History / Comment(s): C-S X2. LT KNEE. LT Wrist Surgery. Cryotherapy of the cervix at age 15. Vaginal hysterectomy 2012. Past Anesthesia/Blood Transfusion Reactions: Previous Problems w/ Anesthesia, Family History of Problems w/ Anesthesia, Motion Sickness Additional Past Anesthesia/Blood Transfusion Reaction / Comment(s): ORNELAS FROM ANESTHESIA. SISTER SLOW TO WAKE UP. Past Psychological History: Anxiety, Panic Disorder Smoking Status: Current every day smoker Past Alcohol Use History: Rare Past Drug Use History: None Reported - Past Family History Mother Family Medical History: Cancer Additional Family Medical History / Comment(s): of ovarian cancer Father Family Medical History: Hyperlipidemia, Hypertension, Myocardial Infarction ([place]) Additional Family Medical History / Comment(s): Paternal aunt and grandmother had uterine cancer. General Exam Limitations: no limitations General appearance: alert, in no apparent distress, other (This is a well- developed, well-nourished adult female patient in no acute distress. Vital signs upon presentation are temperature 98.5F, pulse 102, respirations 18, blood pressure 119/79, pulse ox 98% on room air.) ENT exam: Present: normal oropharynx, mucous membranes moist, other (Patient has for dental extraction sites in the front lower, no active bleeding. No significant swelling or abnormality.) Respiratory exam: Present: normal lung sounds bilaterally. Absent: respiratory distress, wheezes, rales, rhonchi, stridor Cardiovascular Exam: Present: regular rate, normal rhythm, normal heart sounds. Absent: systolic murmur, diastolic murmur, rubs, gallop, clicks Neurological exam: Present: alert, oriented X3, CN II-XII intact Psychiatric exam: Present: normal affect, normal mood Skin exam: Present: warm, dry, intact, normal color. Absent: rash Course Vital Signs 10/20/19 13:24 Temperature 98.5 F Pulse Rate 102 H Respiratory 18 Rate Blood Pressure 119/79 O2 Sat by Pulse 98 Oximetry Medical Decision Making - Medical Decision Making 39-year-old female patient presented to the emergency department today for evaluation of pain after dental extraction. She had the procedure around 10:00 this morning was not given any prescriptions for pain medication. Has not taken any [id number] medication. Physical examination is unremarkable. Dental extraction sites appear intact with no abnormal bleeding. We did give pain medication here. She'll be given a prescription for pain medication. She is instructed to follow-up with her dentist as soon as possible. Return parameters were discussed in detail. She verbalizes understanding and agrees with this plan. Disposition Clinical Impression: Post-op pain Disposition: HOME SELF-CARE Condition: Good Instructions (If sedation given, give patient instructions): Toothache (ED) Additional Instructions: Apply cool compresses to the face. Take medications as directed for pain control. Follow-up with her dentist for any further pain medication needs. Follow-up through primary care physician for recheck in 1-2 days. Return to the emergency department immediately for any new, worsening, or concerning symptoms. Prescriptions: Ibuprofen [Motrin] 600 mg PO Q8HR PRN #30 tab PRN Reason: Pain Is patient prescribed a controlled substance at d/c from ED?: No Referrals: Bridger Menon MD [Primary Care Provider] - 1-2 days Time of Disposition: 14:08
== END 2019-10-20 14:20 | disposition home or self-care (01) ==
LOC: EC 13:14
DX: G89.18 Other acute postprocedural pain (principal); F17.200 Nicotine dependence, unspecified, uncomplicated; Z88.1 Allergy status to other antibiotic agents; Z88.2 Allergy status to sulfonamides; Z88.6 Allergy status to analgesic agent; Z88.5 Allergy status to narcotic agent; Z88.8 Allergy status to other drugs, medicaments and biological substances
CPT/HCPCS: 99282; 96372 ×2; J2270; J1885

== ENCOUNTER 2023-07-23 22:04 | Inpatient (IN) | payer OTHER ==
--- NOTE | 2023-07-23 23:13 | ED ---
Female Urogenital HPI - General Source: EMS Mode of arrival: EMS Limitations: no limitations <El Cook - Last Filed: 07/23/23 23:12> <Dean Frost - Last Filed: 07/24/23 05:28> - General Chief complaint: Urogenital Stated complaint: Back pain Time Seen by Provider: 07/23/23 23:12 - History of Present Illness Initial comments: 42-year-old female presenting with chief complaint of left-sided flank pain that started today. Pain is sharp. She mitts to hematuria. Admits to nausea. (El Cook) Dictation was produced using [employer] dictation software. please excuse any gramma tical, word or spelling errors. Chief Complaint: 42-year-old female presents to the emergency department for abdominal pain History of Present Illness: Patient is a 42-year-old female presents emergency department for what she reports is abdominal pain. She has pain to her left flank. States that it radiates to her groin. She also noted that she was having hematuria. He states that the pain is severe she does feel nauseated but denies any vomiting. States that the pain is constant and sharp in nature. The ROS documented in this emergency department record has been reviewed and confirmed by me. Those systems with pertinent positive or negative responses have been documented in the HPI. All other systems are other negative and/or noncontributory. (Dean Frost) - Related Data Home Medications Medication Instructions Recorded Confirmed Cyclobenzaprine [Flexeril] 10 mg PO BID 04/20/19 10/06/19 HYDROcodone/APAP 7.5-325MG [[place] 1 tab PO TID PRN 10/06/19 10/06/19 7.5-325] Previous Rx's Medication Instructions Recorded Nitrofurantoin Monohyd/M-Cryst 100 mg PO Q12HR 5 Days #10 cap 10/06/19 [Macrobid] Ibuprofen [Motrin] 600 mg PO Q8HR PRN #30 tab 10/20/19 Allergies Allergy/AdvReac Type Severity Reaction Status Date / Time cephalexin monohydrate Allergy Unknown Verified 07/23/23 22:58 [From Keflex] cortisone Allergy Swelling Verified 07/23/23 22:58 gabapentin [From Neurontin] Allergy Unknown Verified 07/23/23 22:58 naproxen Allergy Dyspnea Verified 07/23/23 22:58 Sulfa (Sulfonamide Allergy Anaphylaxis Verified 07/23/23 22:58 Antibiotics) tramadol Allergy Rash/Hives Verified 07/23/23 22:58 Review of Systems ROS Other: All systems not noted in ROS Statement are negative. <El Cook - Last Filed: 07/23/23 23:12> ROS Other: All systems not noted in ROS Statement are negative. <Dean rFost - Last Filed: 07/24/23 05:28> ROS Statement: Those systems with pertinent positive or pertinent negative responses have been documented in the HPI. Past Medical History Past Medical History: Asthma, Cancer, Osteoarthritis (OA) Additional Past Medical History / Comment(s): Chronic BACK/cervical spine probl ems, pain. Pelvic right kidney. VARICOSE VEINS. Chronic low abdominal pain SINCE APPENDIX REMOVED 07/2017. 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 Cryotherapy for cervical dysplasia at age 15. History of Any Multi-Drug Resistant Organisms: None Reported Past Surgical History: Appendectomy, Section, Cholecystectomy, Hysterectomy, Orthopedic Surgery Additional Past Surgical History / Comment(s): C-S X2. LT KNEE. LT Wrist Surgery. Cryotherapy of the cervix at age 15. Vaginal hysterectomy 2012. Past Anesthesia/Blood Transfusion Reactions: Previous Problems w/ Anesthesia, Family History of Problems w/ Anesthesia, Motion Sickness Additional Past Anesthesia/Blood Transfusion Reaction / Comment(s): ORNELAS FROM ANESTHESIA. SISTER SLOW TO WAKE UP. Past Psychological History: Anxiety, Panic Disorder Smoking Status: Current every day smoker Past Alcohol Use History: Rare Past Drug Use History: None Reported - Past Family History Mother Family Medical History: Cancer Additional Family Medical History / Comment(s): of ovarian cancer Father Family Medical History: Hyperlipidemia, Hypertension, Myocardial Infarction (MS) Additional Family Medical History / Comment(s): Paternal aunt and grandmother had uterine cancer. <El Cook - Last Filed: 07/23/23 23:12> General Exam Limitations: no limitations <El Cook - Last Filed: 07/23/23 23:12> <Dean Frost - Last Filed: 07/24/23 05:28> - General Exam Comments Initial Comments: Visual Physical Exam Vital signs reviewed General: nontoxic, patient is moaning in pain. Head: Normocephalic, atraumatic Eyes: PERRLA, EOMI ENT: Airway patent Chest: Nonlabored breathing Skin: No visual rash, normal skin tone Neuro: Alert and oriented 3 Musculoskeletal: No gross abnormalities (El Cook) PHYSICAL EXAM: General Impression: Acute distress secondary to pain HEENT: Normocephalic atraumatic, extra-ocular movements intact, pupils equal and reactive to light bilaterally, mucous membranes moist. Cardiovascular: Heart regular rate and rhythm Chest: Able to complete full sentences, no retractions, no tachypnea Abdomen: abdomen soft, non-tender, non-distended, no organomegaly Musculoskeletal: Pulses present and equal in all extremities, no peripheral edema Motor: no focal deficits noted Neurological: CN II-XII grossly intact, no focal motor or sensory deficits noted Skin: Intact with no visualized rashes Psych: Anxious (Dean Frost) Course Vital Signs 07/23/23 07/24/23 07/24/23 22:54 02:37 03:10 Temperature 98.2 F Pulse Rate 95 75 77 Respiratory 22 15 16 Rate Blood Pressure 103/66 97/59 92/66 O2 Sat by Pulse 99 95 96 Oximetry Medical Decision Making <El Cook - Last Filed: 07/23/23 23:12> - Lab Data Result diagrams: 07/23/23 23:43 07/23/23 23:43 <Dean Frost - Last Filed: 07/24/23 05:28> - Medical Decision Making I performed the quick note portion of this visit, electronically signed El Cook PA-C (El Cook) Was pt. sent in by a medical professional or institution ([facility]ART[facility] Page, LAN ANALYST, urgent care, hospital, or halfway...) When possible be specific @ -No Did you speak to anyone other than the patient for history (EMS, parent, family, police, friend...)? What history was obtained from this source @ -No Did you review nursing and triage notes (agree or disagree)? Why? @ -I reviewed and agree with nursing and triage notes Were old charts reviewed (outside hosp., previous admission, EMS record, old EKG, old radiological studies, urgent care reports/EKG's, halfway records)? Report findings @ -No old charts were reviewed Differential Diagnosis (chest pain, altered mental status, abdominal pain women, abdominal pain men, vaginal bleeding, musculoskeletal, weakness, fever, dyspnea, syncope, headache, dizziness, GI bleed, back pain, seizure, CVA, palpatations, mental health)? @ -Differential Abdominal Pain Women: Appendicitis, Cholecystitis, diverticulosis, ischemic bowel, pancreatitis, hepatitis, UTI, gastroenteritis, AAA, incarcerated hernia, bowel obstruction, constipation, inflammatory bowel, hepatitis, peptic ulcer disease, splenic infarction, perforated viscus, vulvitis, ovarian torsion, PID, kidney stone, placenta abruption, this is not meant to be an all-inclusive list EKG interpreted by me (3pts min.). @ -None done X-rays interpreted by me (1pt min.). @ -None done CT interpreted by me (1pt min.). @ -CT of the ab pelvis without contrast shows ileus, left hydroureteronephrosis. No obvious obstructive ureteral or bladder calculi. U/S interpreted by me (1pt. min.). @ -None done What testing was considered but not performed or refused? (CT, X-rays, U/S, labs)? Why? @ -None What meds were considered but not given or refused? Why? @ -None Did you discuss the management of the patient with other professionals (professionals i.e. , PA, LAN ANALYST, lab, RT, psych nurse, social media sr strategy manager, well surveying engineer, teacher, armor officer, residential case manager)? Give summary @ -Case discussed with hospitalist for admission Was smoking cessation discussed for >3mins.? @ -No Was critical care preformed (if so, how long)? @ -No Were there social determinants of health that impacted care today? How? (Homelessness, low income, unemployed, alcoholism, drug addiction, transportation, low edu. Level, literacy, decrease access to med. care, custodial, rehab)? @ -No Was there de-escalation of care discussed even if they declined (Discuss DNR or withdrawal of care, Hospice)? DNR status @ -No What co-morbidities impacted this encounter? (DM, HTN, Smoking, COPD, CAD, Cancer, CVA, ARF, Chemo, Hep., AIDS, mental health diagnosis, sleep apnea, morbid obesity)? @ -None Was patient admitted / discharged? Hospital course, mention meds given and route, prescriptions, significant lab abnormalities, going to OR and other pertinent info. @ -42-year-old female presents to the emergency department left-sided abdominal pain. Vital signs upon arrival are within acceptable limits. Laboratory evaluation obtained. Mild leukocytosis. Metabolic panel is negative. Urina lysis positive for hematuria. CT scan shows ileus and multiple nonobstructing stones. She has nitrite positive in her urine. Clinical presentation suspicious for pyelonephritis. Patient given ceftriaxone. Undiagnosed new problem with uncertain prognosis? @ -No Drug Therapy requiring intensive monitoring for toxicity (Heparin, Nitro, Insulin, Cardizem)? @ -No Were any procedures done? @ -No Diagnosis/symptom? Acute, or Chronic, or Acute on Chronic? Uncomplicated (without systemic symptoms) or Complicated (systemic symptoms)? @ -Pyelonephritis Side effects of treatment? @ -No Exacerbation, Progression, or Severe Exacerbation? @ -No Poses a threat to life or bodily function? How? (Chest pain, USA, MS, pneumonia, PE, COPD, DKA, ARF, appy, cholecystitis, CVA, Diverticulitis, Homicidal, Suicidal, threat to staff... and all critical care pts) @ -Yes (Dean Frost) - Lab Data Lab Results 07/23/23 07/23/23 07/23/23 Range/Units 23:43 23:43 23:43 WBC 14.0 H (3.8-10.6) k/uL RBC 4.44 (3.80-5.40) m/uL Hgb 13.4 (11.4-16.0) gm/dL Hct 41.9 (34.0-46.0) % MCV 94.3 (80.0-100.0) fL MCH 30.1 (25.0-35.0) pg MCHC 31.9 (31.0-37.0) g/dL RDW 13.4 (11.5-15.5) % Plt Count 315 (150-450) k/uL MPV 8.4 Neutrophils % 84 % Lymphocytes % 9 % Monocytes % 5 % Eosinophils % 1 % Basophils % 0 % Neutrophils # 11.8 H (1.3-7.7) k/uL Lymphocytes # 1.2 (1.0-4.8) k/uL Monocytes # 0.7 (0-1.0) k/uL Eosinophils # 0.1 (0-0.7) k/uL Basophils # 0.1 (0-0.2) k/uL Sodium 137 (137-145) mmol/L Potassium 4.2 (3.5-5.1) mmol/L Chloride 109 H (98-107) mmol/L Carbon Dioxide 23 (22-30) mmol/L Anion Gap 5 mmol/L BUN 12 (7-17) mg/dL Creatinine 0.95 (0.52-1.04) mg/dL Est GFR (CKD-EPI)AfAm 86 (>60 ml/min/1.73 sqM) Est GFR (CKD-EPI)NonAf 75 (>60 ml/min/1.73 sqM) Glucose 103 H (74-99) mg/dL Calcium 9.5 (8.4-10.2) mg/dL Total Bilirubin 1.1 (0.2-1.3) mg/dL AST 22 (14-36) U/L ALT 9 (4-34) U/L Alkaline Phosphatase 63 (38-126) U/L Total Protein 6.9 (6.3-8.2) g/dL Albumin 4.4 (3.5-5.0) g/dL Urine Color Yellow Urine Appearance Cloudy H (Clear) Urine pH 7.0 (5.0-8.0) Ur Specific [place] 1.026 (1.001-1.035) Urine Protein 1+ H (Negative) Urine Glucose (UA) Negative (Negative) Urine Ketones 3+ H (Negative) Urine Blood Large H (Negative) Urine Nitrite Positive H (Negative) Urine Bilirubin Negative (Negative) Urine Urobilinogen 2.0 (<2.0) mg/dL Ur Leukocyte Esterase Small H (Negative) Urine RBC >182 H (0-5) /hpf Urine WBC 11 H (0-5) /hpf Ur Squamous Epith Cells 13 H (0-4) /hpf Urine Bacteria Few H (None) /hpf Urine Mucus Moderate H (None) /hpf Disposition <El Cook - Last Filed: 07/23/23 23:12> Decision Time: 04:45 <Dean Frost - Last Filed: 07/24/23 05:28> Clinical Impression: Flank pain Disposition: ADMITTED IP TO THIS HOSP Condition: Fair Referrals: Bridger Menon MD [Primary Care Provider] - 1-2 days
[2023-07-24 00:10] LABS: ALT 9 U/L (4-34); AST 22 U/L (14-36); African American GFR (CKD) 86 (>60 ml/min/1.73 sqM); Albumin 4.4 g/dL (3.5-5.0); Alkaline Phosphatase 63 U/L (38-126); Anion Gap 5 mmol/L; Blood Urea Nitrogen 12 mg/dL (7-17); Calcium 9.5 mg/dL (8.4-10.2); Carbon Dioxide 23 mmol/L (22-30); Chloride 109 mmol/L (98-107); Glucose 103 mg/dL (74-99); Non-African American GFR(CKD) 75 (>60 ml/min/1.73 sqM); Potassium 4.2 mmol/L (3.5-5.1); Sodium 137 mmol/L (137-145); Total Bilirubin 1.1 mg/dL (0.2-1.3); Total Protein 6.9 g/dL (6.3-8.2)
[2023-07-24 00:34] LABS: Basophils # (A) 0.1 k/uL (0-0.2); Basophils % (A) 0 %; Eosinophils # (A) 0.1 k/uL (0-0.7); Eosinophils % (A) 1 %; HCT 41.9 % (34.0-46.0); HGB 13.4 gm/dL (11.4-16.0); Lymphocytes # (A) 1.2 k/uL (1.0-4.8); Lymphocytes % (A) 9 %; MCH 30.1 pg (25.0-35.0); MCHC 31.9 g/dL (31.0-37.0); MCV 94.3 fL (80.0-100.0); Mean Platelet Volume 8.4; Monocytes # (A) 0.7 k/uL (0-1.0); Monocytes % (A) 5 %; Neutrophils # (A) 11.8 k/uL (1.3-7.7); Neutrophils % (A) 84 %; Platelet Count 315 k/uL (150-450); RBC 4.44 m/uL (3.80-5.40); RDW 13.4 % (11.5-15.5)
[2023-07-24] MEDS: ONDANSETRON ODT 4 MG TAB PO STA (00:35)
[2023-07-24] MEDS: MORPHINE SULFATE 4 MG/ML SYRINGE IM STA (00:36)
[2023-07-24] MEDS: SODIUM CHLORIDE 0.9% 1,000 ML IV STA (00:42)
[2023-07-24 00:46] LABS: Appearance,Urine Cloudy (Clear); Bacteria,Urine Few /hpf; Bilirubin,Urine Negative (Negative); Blood,Urine Large (Negative); Color,Urine Yellow; Glucose,Urine (UA) Negative (Negative); Ketones,Urine 3+ (Negative); Leukocyte Esterase,Urine Small (Negative); Mucus,Urine Moderate /hpf; Nitrite,Urine Positive (Negative); Protein,Urine 1+ (Negative); RBC,Urine >182 /hpf (0-5); Specific Gravity,Urine 1.026 (1.001-1.035); Squamous Epithelial Cell,Urine 13 /hpf (0-4); WBC,Urine 11 /hpf (0-5)
--- NOTE | 2023-07-24 02:03 | CT ---
EXAM: CT Abdomen and Pelvis Without Intravenous Contrast CLINICAL HISTORY: ITS.REASON CT Reason: flank pain TECHNIQUE: Axial computed tomography images of the abdomen and pelvis without intravenous contrast. CTDI is 5.4 mGy and DLP is 257.5 mGy-cm. This CT exam was performed using one or more of the following dose reduction techniques: automated exposure control, adjustment of the mA and/or kV according to patient size, and/or use of iterative reconstruction technique. COMPARISON: CT abdomen/pelvis: 0 10/06/2019 FINDINGS: Image quality hampered by motion artifact Lung bases: No pleural effusion. No mass. No consolidation. ABDOMEN: Analysis of the abdominal/pelvic viscera and vascular structures is limited in absence of IV contrast. Liver: A focal zone with decreased density at the anterior/inferior aspects of the right lobe consistent with focal fatty infiltration. Lay's lobe configuration of the right hepatic lobe. Gallbladder and bile ducts: Gallbladder is not seen, either contracted or surgically removed. No ductal dilation. Pancreas: Grossly unremarkable Spleen: No splenomegaly. Adrenals: Unremarkable. No mass. Kidneys and ureters: Right-sided kidney appears in the mid pelvis. The left kidney is enlarged, normal in position. A punctate/tiny calculus in the lower pole calyx left kidney. Mild left hydroureteronephrosis. No obstructive ureteral or bladder calculus identified. There is a 7.5 mm and a 5.0 mm calculus seen in the pelvic kidney. Stomach and bowel: Gas filled mildly dilated segments of small bowel/ileus. Moderate volume stool/gas in the colon. No obstruction. PELVIS: Appendix: No acute findings in the region of the appendix.. Bladder: Borderline wall thickness. No stones. Reproductive: Prior hysterectomy. A 3.3 x 2.6 cm left adnexal/ovarian and a 2.8 x 2.3 cm right adnexal/ovarian cyst. ABDOMEN and PELVIS: Intraperitoneal space: Unremarkable. No free air. No significant fluid collection. Bones/joints: No acute fracture. No dislocation. Soft tissues: Unremarkable. Vasculature: Unremarkable. No abdominal aortic aneurysm. Lymph nodes: Unremarkable. No enlarged lymph nodes. . IMPRESSION: Technically suboptimal exam. Gas-filled mildly dilated small bowel segment/adynamic ileus. Moderate volume stool/gas in the colon. No evidence of mechanical bowel obstruction. Pelvic kidney with a 7.5 mm and a 5.0 mm nonobstructive calculus. Normally positioned mild enlarged left kidney punctate calculus. Mild left hydroureteronephrosis. No obstructive ureteral or bladder calculus identified. Bilateral adnexal/ovarian cysts. .
[2023-07-24] MEDS ORDERED: NALOXONE 0.4 MG/ML 1 ML VIAL IV PRN (05:26)
[2023-07-24] MEDS ORDERED: ONDANSETRON 4 MG/2 ML VIAL IVP PRN (05:26)
[2023-07-24] MEDS: LEVOFLOXACIN 500MG-D5W PMX 500 MG in DEXTROSE/WATER 1 100ML.BAG IVPB STA (06:20)
[2023-07-24] MEDS: SODIUM CHLORIDE 0.9% 1,000 ML IV SCH (07:06)
[2023-07-24] MEDS ORDERED: ACETAMINOPHEN TAB 500 MG TAB PO PRN (10:57)
[2023-07-24] MEDS: PANTOPRAZOLE 40 MG/10 ML VIAL IVP SCH (11:05)
[2023-07-24] MEDS: NICOTINE 14MG/24HR PATCH TRANSDERM SCH (11:24)
[2023-07-24] MEDS: MORPHINE SULFATE 4 MG/ML SYRINGE IV PRN (22:33)
[2023-07-25] MEDS: LEVOFLOXACIN 500MG-D5W PMX 500 MG in DEXTROSE/WATER 1 100ML.BAG IVPB SCH (10:52)
[2023-07-25 15:28] VITALS: BMI 23.0
--- NOTE | 2023-07-26 00:03 | P.HPIM ---
History of Present Illness H&P Date: 07/25/23 Chief Complaint: Left flank pain Patient is a 5-year-old female with a past medical history of chronic back pain, cervical spine problems, cervical dysplasia at age 15 status post cryotherapy and s/p hysterectomy in 2012, osteoarthritis, anxiety/panic disorder and currently everyday smoker presents to ER with complaints of left flank pain started yesterday. Pain has been sharp and constant. Patient was also complaining of blood in the urine. Associated nausea. No complaints of recent illnesses. No fever no chills. Denies any episodes of vomiting. On admission patient has been afebrile. CT of the abdomen pelvis showed gas- filled mildly dilated small bowel segment/adynamic ileus. Moderate volume stool/gas in the colon. No evidence of mechanical bowel obstruction. Pelvic kidney with 7.5 mm and a 5 mm balloon nonobstructive calculus with mild left hydro utero nephrosis. Bilateral adnexal/ovarian cysts. Laboratory data showed WBC 14.0 hemoglobin 13.4 and platelets 315 Sodium 137 potassium 4.2 chloride 109 bicarb is 23 BUN 12 and creatinine 0.95 and blood sugar 103 Urinalysis showed cloudy with 1+ protein 3+ ketones large blood leukocyte nitrate positive leukocyte esterase small and elevated RBCs and WBCs. Review of Systems Constitutional: Patient denies any fever or chills . No generalized weakness or weight loss. Abdomen: Patient patient does have left flank pain with nausea and vomiting. no diarrhea. Cardiovascular: Patient denies any chest pain or short of breath no palpitations. Respiratory: patient denied any cough or sputum production. No shortness of breath Neurologic: Patient denied any numbness or tingling. no headache. Musculoskeletal: Patient denies any complaints of joint swelling or deformity. Skin: Negative Psychiatric: Negative Endocrine: No heat or cold intolerance. No recent weight gain. Genitourinary: No dysuria or hematuria. All other 14 point ROS negative except the above Past Medical History Past Medical History: Asthma, Cancer, Osteoarthritis (OA) Additional Past Medical History / Comment(s): Chronic BACK/cervical spine problems, pain. Pelvic right kidney. VARICOSE VEINS. Chronic low abdominal pain SINCE APPENDIX REMOVED 07/2017. 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 Cryotherapy for cervical dysplasia at age 15. History of Any Multi-Drug Resistant Organisms: None Reported Past Surgical History: Appendectomy, Section, Cholecystectomy, Hys terectomy, Orthopedic Surgery Additional Past Surgical History / Comment(s): C-S X2. LT KNEE. LT Wrist Surgery. Cryotherapy of the cervix at age 15. Vaginal hysterectomy 2012. Past Anesthesia/Blood Transfusion Reactions: Previous Problems w/ Anesthesia, Family History of Problems w/ Anesthesia, Motion Sickness Additional Past Anesthesia/Blood Transfusion Reaction / Comment(s): ORNELAS FROM ANESTHESIA. SISTER SLOW TO WAKE UP. Past Psychological History: Anxiety, Panic Disorder Smoking Status: Current every day smoker Past Alcohol Use History: Rare Additional Past Alcohol Use History / Comment(s): SMOKING SINCE AGE 13, WAS 2 PPD, NOW 1 PPD. Past Drug Use History: None Reported - Past Family History Mother Family Medical History: Cancer Additional Family Medical History / Comment(s): of ovarian cancer Father Family Medical History: Hyperlipidemia, Hypertension, Myocardial Infarction ([place]) Additional Family Medical History / Comment(s): Paternal aunt and grandmother had uterine cancer. Medications and Allergies Home Medications Medication Instructions Recorded Confirmed Type No Known Home Medications 07/24/23 07/24/23 History Allergies Allergy/AdvReac Type Severity Reaction Status Date / Time cephalexin monohydrate Allergy Unknown Verified 07/24/23 07:04 [From Keflex] cortisone Allergy Swelling Verified 07/24/23 07:04 gabapentin [From Neurontin] Allergy Unknown Verified 07/24/23 07:04 naproxen Allergy Dyspnea Verified 07/24/23 07:04 Sulfa (Sulfonamide Allergy Anaphylaxis Verified 07/24/23 07:04 Antibiotics) tramadol Allergy Rash/Hives Verified 07/24/23 07:04 Physical Exam Vitals: Vital Signs Temp Pulse Pulse Resp BP BP Pulse Ox 07/25/23 07:17 98.3 F 92 14 97/63 99 07/25/23 02:12 98.4 F 71 16 92/58 97 07/24/23 23:19 98.0 F 73 16 92/55 99 07/24/23 22:00 86 16 96/65 97 07/24/23 19:45 98.8 F 81 17 90/58 97 07/24/23 14:45 98.4 F 63 16 111/76 97 Intake and Output 07/24/23 07/25/23 07/25/23 22:59 06:59 14:59 Intake Total 650 1100 Balance 650 1100 Intake: Intake, IV Titration 600 Amount Sodium Chloride 0.9% 1, 600 000 ml @ 100 mls/hr IV . Q10H [facility] Rx#:[id number] Oral 650 500 Other: Voiding Method Toilet Toilet # Voids 2 2 # Bowel Movements 0 Weight 58.967 kg PHYSICAL EXAMINATION: Patient is lying in the bed comfortably, no acute distress, awake alert and oriented.. HEENT: Normocephalic. Neck is supple. Pupils reactive. Nostrils clear. Oral cavity is moist. Neck reveals no JVD, carotid bruits, or thyromegaly. CHEST EXAMINATION: Trachea is central. Symmetrical expansion. Lung wilson clear to auscultation and percussion. CARDIAC: Normal S1, S2 with no gallops. No murmurs ABDOMEN: Soft. Bowel sounds present, mild left flank tenderness.. No organomegaly. No abdominal bruits. Extremities: reveal no edema. No clubbing or cyanosis Neurologically awake, alert, oriented x3 with well-coordinated movements. No focal deficits noted Skin: No rash or skin lesions. Psychiatric: Coperative. Nonsuicidal Musculoskeletal: No joint swelling or deformity. Normal range of motion. Results CBC & Chem 7: 07/23/23 23:43 07/23/23 23:43 Labs: Microbiology - Last 24 Hours (Table) 07/23/23 23:43 Urine Culture - Preliminary Urine,Voided Gram Neg Bacilli Thrombosis Risk Factor Assmnt - DVT/VTE Prophylaxis DVT/VTE Prophylaxis: Pharmacologic Prophylaxis ordered - Choose All That Apply Any of the Below Risk Factors Present?: Yes Each Factor Represents 1 point: Age 41-60 years, Varicose veins Other Risk Factors: No Other congenital or acquired thrombophilia - If yes, enter type in comment: No Thrombosis Risk Factor Assessment Total Risk Factor Score: 2 Thrombosis Risk Factor Assessment Level: Low Risk Assessment and Plan Assessment: Acute pyelonephritis with left ureteral stone and mild left hydronephrosis. Sepsis secondary above Asthma not in exacerbation Chronic back pain with cervical spine problems History of cervical dysplasia 30 years 15 status post cryotherapy History of vaginal hysterectomy in 2014 Anxiety/panic disorder Current everyday smoker DVT prophylaxis with heparin subcu Plan: Patient will be continued on IV hydration with normal saline. Continue with antibiotics of Levaquin and patient is allergic to cephalexin. Follow-up urine culture report and blood cultures. Urology consult due to left hydronephrosis and ureteral stones. Pain management. Continue to follow closely. Time with Patient: Greater than 30
[2023-07-26] MEDS ORDERED: SENNOSIDES 8.6 MG TAB PO PRN (00:42)
[2023-07-26] MEDS: HEPARIN SODIUM,PORCINE 5,000 UNIT/ML 1 ML VIAL SQ SCH (08:22)
--- NOTE | 2023-07-26 09:59 | P.GSCN ---
History of Present Illness Consult date: 07/26/23 History of present illness: 42 yo female came to the hospital with left flank pain. SHe admitted to having hematuria. SHe had a ct scan that shows she has a pelvic right kidney with two stones, some mild left hydronephrosis with out stones. Her urine shows alot of rbc with some wbc. Her wbc was 14 k.she is not having any flank pain at this point in time. She has not had previous stones. She may have a urine infection. She does not have any bowel or major back issues. Review of Systems All systems: negative - Constitutional Denies fever, Denies weight loss - EENT Eyes: denies blurred vision Ears, nose, mouth and throat: Denies dysphagia - Cardiovascular Denies chest pain, Denies shortness of breath - Respiratory Denies cough, Denies 7 - Gastrointestinal Reports as per HPI - Genitourinary Genitourinary: Denies dysuria, Denies hematuria - Integumentary Denies rash, Denies unusual bruising - Neurological Denies headaches, Denies syncope - Hematologic/Lymphatic Denies easy bleeding, Denies easy bruising Past Medical History Past Medical History: Asthma, Cancer, Osteoarthritis (OA) Additional Past Medical History / Comment(s): Chronic BACK/cervical spine proble ms, pain. Pelvic right kidney. VARICOSE VEINS. Chronic low abdominal pain SINCE APPENDIX REMOVED 07/2017. 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 Cryotherapy for cervical dysplasia at age 15. History of Any Multi-Drug Resistant Organisms: None Reported Past Surgical History: Appendectomy, Section, Cholecystectomy, Hysterectomy, Orthopedic Surgery Additional Past Surgical History / Comment(s): C-S X2. LT KNEE. LT Wrist Surgery. Cryotherapy of the cervix at age 15. Vaginal hysterectomy 2012. Past Anesthesia/Blood Transfusion Reactions: Previous Problems w/ Anesthesia, Family History of Problems w/ Anesthesia, Motion Sickness Additional Past Anesthesia/Blood Transfusion Reaction / Comm: ORNELAS FROM ANESTHESIA. SISTER SLOW TO WAKE UP. Past Psychological History: Anxiety, Panic Disorder Smoking Status: Current every day smoker Past Alcohol Use History: Rare Additional Past Alcohol Use History / Comment(s): SMOKING SINCE AGE 13, WAS 2 PPD, NOW 1 PPD. Past Drug Use History: None Reported - Past Family History Mother Family Medical History: Cancer Additional Family Medical History / Comment(s): of ovarian cancer Father Family Medical History: Hyperlipidemia, Hypertension, Myocardial Infarction (AR) Additional Family Medical History / Comment(s): Paternal aunt and grandmother had uterine cancer. Medications and Allergies Home Medications Medication Instructions Recorded Confirmed Type No Known Home Medications 07/24/23 07/24/23 History Allergies Allergy/AdvReac Type Severity Reaction Status Date / Time cephalexin monohydrate Allergy Unknown Verified 07/24/23 07:04 [From Keflex] cortisone Allergy Swelling Verified 07/24/23 07:04 gabapentin [From Neurontin] Allergy Unknown Verified 07/24/23 07:04 naproxen Allergy Dyspnea Verified 07/24/23 07:04 Sulfa (Sulfonamide Allergy Anaphylaxis Verified 07/24/23 07:04 Antibiotics) tramadol Allergy Rash/Hives Verified 07/24/23 07:04 Surgical - Exam Vital Signs Temp Pulse Resp BP Pulse Ox 98.2 F 95 22 103/66 99 07/23/23 22:54 07/23/23 22:54 07/23/23 22:54 07/23/23 22:54 07/23/23 22:54 - General well developed, well nourished, no distress - Eyes normal ocular movement, no icteric - ENT no hearing loss, no congestion - Neck no masses, trachea midline - Respiratory normal respiratory effort, clear to auscultation - Abdomen Abdomen: soft, non tender, no guarding, no rigid, no rebound - Integumentary no rash, no abnormal pigmentation - Neurologic no disoriented, no combative - Psychiatric oriented to time, oriented to person, oriented to place, speech is normal, memory intact Results - Labs 07/23/23 23:43 07/23/23 23:43 Microbiology - Last 24 Hours (Table) 07/23/23 23:43 Urine Culture - Final Urine,Voided Escherichia coli 07/24/23 06:00 Blood Culture - Preliminary Blood 07/24/23 06:15 Blood Culture - Preliminary Blood - Imaging CT scan - abdomen: report reviewed, image reviewed CT scan - pelvis: report reviewed, image reviewed Assessment and Plan Assessment: Impression: possible left pyelonephritis, possible passed left ureteral stone. pelvic right kidney with stones Plan: nothing surgical at this time. I suspect the patient passed a stone based on her clinical picture with mild hydronephrosis on the left side stones in the right kidney in her presentation of abrupt onset of pain. I will treat her with antibiotics. Nothing further urologic needs to be done at this point in time.
[2023-07-26 10:31] LABS: Basophils # (A) 0.03 X 10*3/uL (0.00-0.10); Basophils % (A) 0.4 %; Eosinophils # (A) 0.08 X 10*3/uL (0.04-0.35); Eosinophils % (A) 1.2 %; HCT 38.6 % (37.2-46.3); HGB 12.5 g/dL (12.0-15.0); Lymphocytes # (A) 1.79 X 10*3/uL (0.90-5.00); Lymphocytes % (A) 26.8 %; MCH 30.6 pg (27.0-32.0); MCHC 32.4 g/dL (32.0-37.0); MCV 94.4 FL (80.0-97.0); Mean Platelet Volume 10.3 FL (9.5-12.2); Monocytes # (A) 0.75 X 10*3/uL (0.20-1.00); Monocytes % (A) 11.2 %; NRBC Per 100 WBC 0 X 10*3/uL (0.00-0.01); Neutrophils % (A) 60.1 %; Platelet Count 211 X 10*3/uL (140-440); RBC 4.09 X 10*6/uL (4.10-5.20); RDW 13.4 % (11.5-14.5); WBC 6.67 X 10*3/uL (4.50-10.00)
[2023-07-26 10:38] LABS: BUN/Creat Ratio 11.83 Ratio (12.00-20.00); Blood Urea Nitrogen 7.1 mg/dL (9.0-27.0); Carbon Dioxide 21.6 mmol/L (21.6-31.8); Chloride 107 mmol/L (96-109); Glucose 93 mg/dL (70-110); Potassium 4.3 mmol/L (3.5-5.5); Sodium 138 mmol/L (135-145)
[2023-07-26 13:23] VITALS: BP 98/61; PULSE 91; RESP 18; TEMP 98.7
== END 2023-07-26 16:10 | disposition home or self-care (01) | DRG 720 ==
LOC: EC 22:04 → 5NMEDONC 07-24 05:26 → 4SSUR 07-24 22:38 → 5NMEDONC 07-24 22:52
PROVIDERS: ADMIT Internal Medicine; ATTEND Internal Medicine
DX: A41.9 Sepsis, unspecified organism (principal); F17.210 Nicotine dependence, cigarettes, uncomplicated; F41.0 Panic disorder [episodic paroxysmal anxiety]; G89.29 Other chronic pain; N13.6 Pyonephrosis; N20.2 Calculus of kidney with calculus of ureter; Z87.410 Personal history of cervical dysplasia; Z88.1 Allergy status to other antibiotic agents; I83.90 Asymptomatic varicose veins of unspecified lower extremity; M54.2 Cervicalgia; J45.909 Unspecified asthma, uncomplicated; Z28.310 Unvaccinated for COVID-19; Z28.21 Immunization not carried out because of patient refusal; Z88.6 Allergy status to analgesic agent; Z88.5 Allergy status to narcotic agent; Z88.2 Allergy status to sulfonamides; Z88.8 Allergy status to other drugs, medicaments and biological substances; M19.90 Unspecified osteoarthritis, unspecified site
CPT/HCPCS: 36415; 74176; 80048; 80053; 81001; 85025; 87040; 87077; 87086; 87186; 96361; 96365; 96366; 96372; 96375; 99285

== ENCOUNTER 2023-12-18 00:13 | Emergency (ER) | payer OTHER ==
[2023-12-18 00:29] VITALS: TEMP 97.9
[2023-12-18 01:03] LABS: Basophils % (A) 0 %; Eosinophils # (A) 0.2 k/uL (0-0.7); Eosinophils % (A) 2 %; HCT 37.1 % (34.0-46.0); HGB 12.1 gm/dL (11.4-16.0); Lymphocytes # (A) 2.5 k/uL (1.0-4.8); Lymphocytes % (A) 37 %; MCH 31.1 pg (25.0-35.0); MCHC 32.6 g/dL (31.0-37.0); MCV 95.3 fL (80.0-100.0); Mean Platelet Volume 7.2; Monocytes # (A) 0.5 k/uL (0-1.0); Monocytes % (A) 7 %; Neutrophils # (A) 3.6 k/uL (1.3-7.7); Neutrophils % (A) 52 %; Platelet Count 335 k/uL (150-450); RDW 13.3 % (11.5-15.5); WBC 6.9 k/uL (3.8-10.6)
[2023-12-18 01:15] LABS: ALT 7 U/L (4-34); AST 19 U/L (14-36); African American GFR (CKD) >90 (>60 ml/min/1.73 sqM); Albumin 4.1 g/dL (3.5-5.0); Alkaline Phosphatase 48 U/L (38-126); Amylase 42 U/L (30-110); Anion Gap 5 mmol/L; Blood Urea Nitrogen 10 mg/dL (7-17); Calcium 8.9 mg/dL (8.4-10.2); Carbon Dioxide 28 mmol/L (22-30); Chloride 108 mmol/L (98-107); Glucose 93 mg/dL (74-99); Lipase 80 U/L (23-300); Non-African American GFR(CKD) >90 (>60 ml/min/1.73 sqM); Potassium 3.7 mmol/L (3.5-5.1); Sodium 141 mmol/L (137-145); Total Bilirubin 0.5 mg/dL (0.2-1.3); Total Protein 6.7 g/dL (6.3-8.2)
--- NOTE | 2023-12-18 01:33 | XR ---
EXAM: XR Abdomen, 1 View CLINICAL HISTORY: HX OF KIDNEY STONES ON BOTH SIDES. Abdominal pain TECHNIQUE: Frontal supine view of the abdomen/pelvis. COMPARISON: CT abdomen and pelvis from 6 1224 FINDINGS: Gastrointestinal tract: Nonspecific bowel gas pattern. No dilation. Organs: Note, patient has a right pelvic ectopic kidney on comparison CT. No definite stone identified in the expected contours of the kidneys, urinary bladder, and ureters. Pelvic fecalith or phleboliths are again noted Bones/joints: No fracture or dislocation. IMPRESSION: No definite stone identified in the expected contours of the kidneys, urinary bladder, and ureters.
[2023-12-18] MEDS: KETOROLAC 15 MG/ML 1 ML VIAL IVP STA (02:47)
[2023-12-18] MEDS: SODIUM CHLORIDE 0.9% 1,000 ML IV ONE (03:28)
--- NOTE | 2023-12-18 03:40 | CT ---
EXAM: CT Abdomen and Pelvis Without Intravenous Contrast CLINICAL HISTORY: kidney stone TECHNIQUE: Axial computed tomography images of the abdomen and pelvis without intravenous contrast. CTDI is 5.1 mGy and DLP is 281.7 mGy-cm. This CT exam was performed using one or more of the following dose reduction techniques: automated exposure control, adjustment of the mA and/or kV according to patient size, and/or use of iterative reconstruction technique. Coronal and sagittal reformatted images were created and reviewed. Lack of oral and IV contrast limit the sensitivity of this exam. 415 images COMPARISON: 07/23/23 FINDINGS: Lung bases: Unremarkable. No mass. No consolidation. ABDOMEN: Liver: Lay's lobe of the liver. Gallbladder and bile ducts: Unremarkable. No calcified stones. No ductal dilation. Pancreas: Unremarkable. No ductal dilation. Spleen: Unremarkable. No splenomegaly. Adrenals: Unremarkable. No mass. Kidneys and ureters: Nonobstructing stone in the 2 mm nonobstructing left kidney. Stomach and bowel: Unremarkable. No obstruction. No mucosal thickening. PELVIS: Appendix: No findings to suggest acute appendicitis. Bladder: Unremarkable. No stones. Reproductive: Right pelvic ectopic kidney has nonobstructing stones measuring up to 6 mm. Suspect 2.3 cm left ovarian cyst on series 201 image 102. Uterus is absent. ABDOMEN and PELVIS: Intraperitoneal space: Unremarkable. No free air. No significant fluid collection. Bones/joints: No acute findings. Soft tissues: Scant the mesenteric fat limits evaluation of mesenteric inflammation. Vasculature: Unremarkable. No abdominal aortic aneurysm. Lymph nodes: Unremarkable. No enlarged lymph nodes. IMPRESSION: Right pelvic ectopic kidney has nonobstructing stones measuring up to 6 mm. Nonobstructing bilateral renal stones.
--- NOTE | 2023-12-18 04:05 | ED ---
Abdominal Pain HPI - General Source: patient Mode of arrival: ambulatory Limitations: no limitations <El Cook - Last Filed: 12/22/23 18:52> <Nati Tenorio - Last Filed: 12/25/23 11:31> - General Chief Complaint: Abdominal Pain Stated Complaint: ABD Pain Time Seen by Provider: 12/18/23 01:43 - History of Present Illness Initial Comments: 43-year-old female presenting with chief complaint of bilateral flank pain. Patient has history of kidney stones, believes that this is what is causing her pain at this time. He is having no dysuria or hematuria. No nausea or vomiting. No diarrhea. No fevers or chills. No chest pain or difficulty breathing. (El Cook) - Related Data Previous Rx's Medication Instructions Recorded Levofloxacin [Levaquin] 500 mg PO DAILY 8 Days #8 tab 07/27/23 Allergies Allergy/AdvReac Type Severity Reaction Status Date / Time cephalexin monohydrate Allergy Unknown Verified 12/18/23 00:26 [From Keflex] cortisone Allergy Swelling Verified 12/18/23 00:26 gabapentin [From Neurontin] Allergy Unknown Verified 12/18/23 00:26 naproxen Allergy Dyspnea Verified 12/18/23 00:26 Sulfa (Sulfonamide Allergy Anaphylaxis Verified 12/18/23 00:26 Antibiotics) tramadol Allergy Rash/Hives Verified 12/18/23 00:26 Review of Systems ROS Other: All systems not noted in ROS Statement are negative. <El Cook - Last Filed: 12/22/23 18:52> ROS Other: All systems not noted in ROS Statement are negative. <Nati Tenorio - Last Filed: 12/25/23 11:31> ROS Statement: Those systems with pertinent positive or pertinent negative responses have been documented in the HPI. Past Medical History Past Medical History: Asthma, Cancer, Osteoarthritis (OA) Additional Past Medical History / Comment(s): Chronic BACK/cervical spine problems, pain. Pelvic right kidney. VARICOSE VEINS. Chronic low abdominal pain SINCE APPENDIX REMOVED 07/2017. 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 Cryotherapy for cervical dysplasia at age 15. History of Any Multi-Drug Resistant Organisms: None Reported Past Surgical History: Appendectomy, Section, Cholecystectomy, Hysterectomy, Orthopedic Surgery Additional Past Surgical History / Comment(s): C-S X2. LT KNEE. LT Wrist Surgery. Cryotherapy of the cervix at age 15. Vaginal hysterectomy 2012. Past Anesthesia/Blood Transfusion Reactions: Previous Problems w/ Anesthesia, Family History of Problems w/ Anesthesia, Motion Sickness Additional Past Anesthesia/Blood Transfusion Reaction / Comment(s): ORNELAS FROM ANESTHESIA. SISTER SLOW TO WAKE UP. Past Psychological History: Anxiety, Panic Disorder Smoking Status: Current every day smoker Past Alcohol Use History: Rare Past Drug Use History: None Reported - Past Family History Mother Family Medical History: Cancer Additional Family Medical History / Comment(s): of ovarian cancer Father Family Medical History: Hyperlipidemia, Hypertension, Myocardial Infarction (PR) Additional Family Medical History / Comment(s): Paternal aunt and grandmother had uterine cancer. <El Cook - Last Filed: 12/22/23 18:52> General Exam Limitations: no limitations General appearance: alert, in no apparent distress Head exam: Present: atraumatic, normocephalic, normal inspection Eye exam: Present: normal appearance, EOMI Neck exam: Present: normal inspection. Absent: meningismus Respiratory exam: Present: normal lung sounds bilaterally. Absent: respiratory distress, wheezes, rales, rhonchi, stridor Cardiovascular Exam: Present: regular rate, normal rhythm, normal heart sounds. Absent: systolic murmur, diastolic murmur, rubs, gallop, clicks GI/Abdominal exam: Present: soft. Absent: distended, tenderness, guarding, rebound, rigid Neurological exam: Present: alert, oriented X3 Psychiatric exam: Present: normal affect, normal mood Skin exam: Present: warm, dry, normal color <El Cook - Last Filed: 12/22/23 18:52> Course Vital Signs 12/18/23 12/18/23 12/18/23 00:26 03:24 04:16 Temperature 97.9 F Pulse Rate 90 96 74 Respiratory 16 16 17 Rate Blood Pressure 98/56 85/53 96/65 O2 Sat by Pulse 97 97 100 Oximetry 12/18/23 06:13 Temperature 97.9 F Pulse Rate 69 Respiratory 18 Rate Blood Pressure 90/61 O2 Sat by Pulse 98 Oximetry Medical Decision Making - Lab Data Result diagrams: 12/18/23 00:45 12/18/23 00:45 <El Cook Last Filed: 12/22/23 18:52> - Lab Data Result diagrams: 12/18/23 00:45 12/18/23 00:45 <Nati Tenorio - Last Filed: 12/25/23 11:31> - Medical Decision Making Was pt. sent in by a medical professional or institution (, PA, SPORTS TRAINER, urgent care, hospital, or [facility]...) When possible be specific @ -No Did you speak to anyone other than the patient for history (EMS, parent, family, police, friend...)? What history was obtained from this source @ -No Did you review nursing and triage notes (agree or disagree)? Why? @ -I reviewed and agree with nursing and triage notes Were old charts reviewed (outside hosp., previous admission, EMS record, old EKG, old radiological studies, urgent care reports/EKG's, [facility] records)? Report findings @ -No old charts were reviewed Differential Diagnosis (chest pain, altered mental status, abdominal pain women, abdominal pain men, vaginal bleeding, weakness, fever, dyspnea, syncope, headache, dizziness, GI bleed, back pain, seizure, CVA, palpatations, mental health, musculoskeletal)? @ - MDM Differential Back Pain: Strain, zoster, cauda equina syndrome, epidural abscess, vertebral osteomyelitis, discitis, fracture, subluxation, disc herniation, DJD, spinal s tenosis, dissection, AAA, pancreatitis, peptic ulcer disease, pyelonephritis, kidney stone this is not meant to be an all-inclusive list. EKG interpreted by me (3pts min.). @ -As above X-rays interpreted by me (1pt min.). @ -Shows no definite stones identified in the expected contours of the kidneys, urinary bladder, and ureters CT interpreted by me (1pt min.). @ -CT shows right pelvic ectopic kidney has nonobstructing stones measuring up to 6 mm. Nonobstructing bilateral renal stones U/S interpreted by me (1pt. min.). @ -None done What testing was considered but not performed or refused? (CT, X-rays, U/S, labs)? Why? @ -None What meds were considered but not given or refused? Why? @ -None Did you discuss the management of the patient with other professionals (professionals i.e. , PA, SPORTS TRAINER, lab, RT, psych nurse, certified social workers in health care, band saw filer, teacher, community arts officer, case management coordinator)? Give summary @ -No Was smoking cessation discussed for >3mins.? @ -No Was critical care preformed (if so, how long)? @ -No Were there social determinants of health that impacted care today? How? (Ho melessness, low income, unemployed, alcoholism, drug addiction, transportation, low edu. Level, literacy, decrease access to med. care, intermediate, rehab)? @ -No Was there de-escalation of care discussed even if they declined (Discuss DNR or withdrawal of care, Hospice)? DNR status @ -No What co-morbidities impacted this encounter? (DM, HTN, Smoking, COPD, CAD, Cancer, CVA, ARF, Chemo, Hep., AIDS, mental health diagnosis, sleep apnea, morbid obesity)? @ -None Was patient admitted / discharged? Hospital course, mention meds given and route, prescriptions, significant lab abnormalities, going to OR and other pertinent info. @ -43-year-old female presenting with chief complaint of bilateral flank pain. History of kidney stones. Lab work shows no leukocytosis or anemia. CMP requires no action. KUB and CT negative for obstructive uropathy. Patient given pain medication and is resting comfortably. Awaiting urine sample. Patient is signed out to my attending Dr. Tenorio pending UA Undiagnosed new problem with uncertain prognosis? @ -No Drug Therapy requiring intensive monitoring for toxicity (Heparin, Nitro, Insulin, Cardizem)? @ -No Were any procedures done? @ -No Diagnosis/symptom? @ -Default Acute, or Chronic, or Acute on Chronic? @ -Default Uncomplicated (without systemic symptoms) or Complicated (systemic symptoms)? @ -Default Side effects of treatment? @ -No Exacerbation, Progression, or Severe Exacerbation? @ -No Poses a threat to life or bodily function? How? (Chest pain, [place], PR, pneumonia, PE, COPD, DKA, ARF, appy, cholecystitis, CVA, Diverticulitis, Homicidal, Suicidal, threat to staff... and all critical care pts) @ -No (El Cook) Pt signed out to myself pending UA. On my review, Urinalysis shows trace blood, 16 squamous cells, rare bacteria and moderate mucus but negative nitrates and leukocyte esterase, no signs of infection, patient discharged. (Nati Tenorio) - Lab Data Lab Results 12/18/23 12/18/23 12/18/23 Range/Units 00:45 00:45 00:45 WBC 6.9 (3.8-10.6) k/uL RBC 3.90 (3.80-5.40) m/uL Hgb 12.1 (11.4-16.0) gm/dL Hct 37.1 (34.0-46.0) % MCV 95.3 (80.0-100.0) fL MCH 31.1 (25.0-35.0) pg MCHC 32.6 (31.0-37.0) g/dL RDW 13.3 (11.5-15.5) % Plt Count 335 (150-450) k/uL MPV 7.2 Neutrophils % 52 % Lymphocytes % 37 % Monocytes % 7 % Eosinophils % 2 % Basophils % 0 % Neutrophils # 3.6 (1.3-7.7) k/uL Lymphocytes # 2.5 (1.0-4.8) k/uL Monocytes # 0.5 (0-1.0) k/uL Eosinophils # 0.2 (0-0.7) k/uL Basophils # 0.0 (0-0.2) k/uL Sodium 141 (137-145) mmol/L Potassium 3.7 (3.5-5.1) mmol/L Chloride 108 H (98-107) mmol/L Carbon Dioxide 28 (22-30) mmol/L Anion Gap 5 mmol/L BUN 10 (7-17) mg/dL Creatinine 0.69 (0.52-1.04) mg/dL Est GFR (CKD-EPI)AfAm >90 (>60 ml/min/1.73 sqM) Est GFR (CKD-EPI)NonAf >90 (>60 ml/min/1.73 sqM) Glucose 93 (74-99) mg/dL Plasma Lactic Acid Rudy 0.8 (0.7-2.0) mmol/L Calcium 8.9 (8.4-10.2) mg/dL Total Bilirubin 0.5 (0.2-1.3) mg/dL AST 19 (14-36) U/L ALT 7 (4-34) U/L Alkaline Phosphatase 48 (38-126) U/L Total Protein 6.7 (6.3-8.2) g/dL Albumin 4.1 (3.5-5.0) g/dL Amylase 42 (30-110) U/L Lipase 80 (23-300) U/L Urine Color Urine Appearance (Clear) Urine pH (5.0-8.0) Ur Specific Pollock (1.001-1.035) Urine Protein (Negative) Urine Glucose (UA) (Negative) Urine Ketones (Negative) Urine Blood (Negative) Urine Nitrite (Negative) Urine Bilirubin (Negative) Urine Urobilinogen (<2.0) mg/dL Ur Leukocyte Esterase (Negative) Urine RBC (0-5) /hpf Urine WBC (0-5) /hpf Ur Squamous Epith Cells (0-4) /hpf Urine Bacteria (None) /hpf Hyaline Casts (0-2) /lpf Urine Mucus (None) /hpf 12/18/23 Range/Units 04:53 WBC (3.8-10.6) k/uL RBC (3.80-5.40) m/uL Hgb (11.4-16.0) gm/dL Hct (34.0-46.0) % MCV (80.0-100.0) fL MCH (25.0-35.0) pg MCHC (31.0-37.0) g/dL RDW (11.5-15.5) % Plt Count (150-450) k/uL MPV Neutrophils % % Lymphocytes % % Monocytes % % Eosinophils % % Basophils % % Neutrophils # (1.3-7.7) k/uL Lymphocytes # (1.0-4.8) k/uL Monocytes # (0-1.0) k/uL Eosinophils # (0-0.7) k/uL Basophils # (0-0.2) k/uL Sodium (137-145) mmol/L Potassium (3.5-5.1) mmol/L Chloride (98-107) mmol/L Carbon Dioxide (22-30) mmol/L Anion Gap mmol/L BUN (7-17) mg/dL Creatinine (0.52-1.04) mg/dL Est GFR (CKD-EPI)AfAm (>60 ml/min/1.73 sqM) Est GFR (CKD-EPI)NonAf (>60 ml/min/1.73 sqM) Glucose (74-99) mg/dL Plasma Lactic Acid Rudy (0.7-2.0) mmol/L Calcium (8.4-10.2) mg/dL Total Bilirubin (0.2-1.3) mg/dL AST (14-36) U/L ALT (4-34) U/L Alkaline Phosphatase (38-126) U/L Total Protein (6.3-8.2) g/dL Albumin (3.5-5.0) g/dL Amylase (30-110) U/L Lipase (23-300) U/L Urine Color Light Yellow Urine Appearance Cloudy H (Clear) Urine pH 6.0 (5.0-8.0) Ur Specific Pollock 1.023 (1.001-1.035) Urine Protein Negative (Negative) Urine Glucose (UA) Negative (Negative) Urine Ketones Negative (Negative) Urine Blood Trace H (Negative) Urine Nitrite Negative (Negative) Urine Bilirubin Negative (Negative) Urine Urobilinogen <2.0 (<2.0) mg/dL Ur Leukocyte Esterase Negative (Negative) Urine RBC 1 (0-5) /hpf Urine WBC 5 (0-5) /hpf Ur Squamous Epith Cells 16 H (0-4) /hpf Urine Bacteria Rare H (None) /hpf Hyaline Casts 1 (0-2) /lpf Urine Mucus Moderate H (None) /hpf Disposition Is patient prescribed a controlled substance at d/c from ED?: No <El Cook - Last Filed: 12/22/23 18:52> <Nati Tenorio - Last Filed: 12/25/23 11:31> Clinical Impression: Flank pain Disposition: HOME SELF-CARE Condition: Good Instructions (If sedation given, give patient instructions): Acute Abdominal Pain (ED) Additional Instructions: Every disease is a spectrum and a small chance still exists that a serious condition could develop, for this reason, please monitor yourself closely for new, changing or worsening symptoms, symptoms that persist beyond 48 hours, blood in your urine or burning with urination, pain you cannot control at home fever, inability to tolerate/keep down fluids or your medications, inability to follow up with outpatient providers as instructed and should you experience these symptoms or should you have any further concerns for your wellbeing please return to the ED or call 911 immediately. PLEASE call your primary care physician as soon as possible to arrange / discuss plan for followup appointment. Appointment in the next 1-3 days is strongly encouraged if possible. PLEASE let us know here before you leave if there is anything further we can do to be of any assistance. Take care and feel Better! Referrals: None,Stated [Primary Care Provider] - 1-2 days
[2023-12-18 05:14] LABS: Appearance,Urine Cloudy (Clear); Bacteria,Urine Rare /hpf; Bilirubin,Urine Negative (Negative); Blood,Urine Trace (Negative); Color,Urine Light Yellow; Glucose,Urine (UA) Negative (Negative); Hyaline Casts,Urine 1 /lpf (0-2); Ketones,Urine Negative (Negative); Leukocyte Esterase,Urine Negative (Negative); Mucus,Urine Moderate /hpf; Nitrite,Urine Negative (Negative); Protein,Urine Negative (Negative); RBC,Urine 1 /hpf (0-5); Specific Gravity,Urine 1.023 (1.001-1.035); Squamous Epithelial Cell,Urine 16 /hpf (0-4); Urobilinogen,Urine <2.0 mg/dL (<2.0); WBC,Urine 5 /hpf (0-5)
[2023-12-18 06:15] VITALS: BP 90/61; PULSE 69; RESP 18
== END 2023-12-18 06:15 | disposition home or self-care (01) ==
LOC: EC 00:13
DX: N20.0 Calculus of kidney (principal); F17.200 Nicotine dependence, unspecified, uncomplicated; Z88.2 Allergy status to sulfonamides; Z88.1 Allergy status to other antibiotic agents; Z88.8 Allergy status to other drugs, medicaments and biological substances; Z88.5 Allergy status to narcotic agent
CPT/HCPCS: 99284; 96374; 96361; 36415; 80053; 82150; 83605; 83690; 85025; 81001; 87086; 74018; 74176; J1885

== ENCOUNTER 2024-04-06 11:15 | Emergency (ER) | payer OTHER ==
[2024-04-06] MEDS: KETOROLAC 15 MG/ML 1 ML VIAL IVP STA ×2 (11:33→14:53)
[2024-04-06] MEDS: ONDANSETRON 4 MG/2 ML VIAL IVP STA (11:35)
[2024-04-06] MEDS: SODIUM CHLORIDE 0.9% 1,000 ML IV STA (11:36)
--- NOTE | 2024-04-06 11:38 | ED ---
General Adult HPI - General Chief complaint: Abdominal Pain Stated complaint: Abd/Back Pain Time Seen by Provider: 04/06/24 11:17 Source: patient, EMS, RN notes reviewed Mode of arrival: EMS Limitations: no limitations - History of Present Illness Initial comments: 43-year-old female presents to the emergency department for evaluation of abdominal pain. Patient states that this started suddenly 2 to 3 hours ago. She notes that it feels similar to prior kidney stones. She states that it is throughout her entire abdomen. She denies fever, chills. Admits to nausea. Prior abdominal surgeries include cholecystectomy, appendectomy. She received f entanyl on the ambulance. She states that this did not help her pain. - Related Data Previous Rx's Medication Instructions Recorded Levofloxacin [Levaquin] 500 mg PO DAILY 8 Days #8 tab 07/27/23 Allergies Allergy/AdvReac Type Severity Reaction Status Date / Time cephalexin monohydrate Allergy Unknown Verified 04/06/24 11:27 [From Keflex] cortisone Allergy Swelling Verified 04/06/24 11:27 gabapentin [From Neurontin] Allergy Unknown Verified 04/06/24 11:27 naproxen Allergy Dyspnea Verified 04/06/24 11:27 Sulfa (Sulfonamide Allergy Anaphylaxis Verified 04/06/24 11:27 Antibiotics) tramadol Allergy Rash/Hives Verified 04/06/24 11:27 Review of Systems ROS Statement: Those systems with pertinent positive or pertinent negative responses have been documented in the HPI. ROS Other: All systems not noted in ROS Statement are negative. Past Medical History Past Medical History: Asthma, Cancer, Osteoarthritis (OA) Additional Past Medical History / Comment(s): Chronic BACK/cervical spine problems, pain. Pelvic right kidney. VARICOSE VEINS. Chronic low abdominal pain SINCE APPENDIX REMOVED 07/2017. 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 Cryotherapy for cervical dysplasia at age 15. History of Any Multi-Drug Resistant Organisms: None Reported Past Surgical History: Appendectomy, Section, Cholecystectomy, Hysterectomy, Orthopedic Surgery Additional Past Surgical History / Comment(s): C-S X2. LT KNEE. LT Wrist Surgery. Cryotherapy of the cervix at age 15. Vaginal hysterectomy 2012. Past Anesthesia/Blood Transfusion Reactions: Previous Problems w/ Anesthesia, Family History of Problems w/ Anesthesia, Motion Sickness Additional Past Anesthesia/Blood Transfusion Reaction / Comment(s): ORNELAS FROM ANESTHESIA. SISTER SLOW TO WAKE UP. Past Psychological History: Anxiety, Panic Disorder Smoking Status: Current every day smoker Past Alcohol Use History: Rare Past Drug Use History: None Reported - Past Family History Mother Family Medical History: Cancer Additional Family Medical History / Comment(s): of ovarian cancer Father Family Medical History: Hyperlipidemia, Hypertension, Myocardial Infarction (LA) Additional Family Medical History / Comment(s): Paternal aunt and grandmother had uterine cancer. General Exam Limitations: no limitations General appearance: alert, in no apparent distress Head exam: Present: atraumatic, normocephalic, normal inspection Eye exam: Present: normal appearance, PERRL, EOMI. Absent: scleral icterus, c onjunctival injection, periorbital swelling ENT exam: Present: normal exam, mucous membranes moist Neck exam: Present: normal inspection. Absent: tenderness, meningismus, lymphadenopathy Respiratory exam: Present: normal lung sounds bilaterally. Absent: respiratory distress, wheezes, rales, rhonchi, stridor Cardiovascular Exam: Present: regular rate, normal rhythm, normal heart sounds. Absent: systolic murmur, diastolic murmur, rubs, gallop, clicks GI/Abdominal exam: Present: soft, tenderness (Throughout abdomen, no focal tenderness), normal bowel sounds. Absent: distended, guarding, rebound, rigid Extremities exam: Present: normal inspection, full ROM, normal capillary refill. Absent: tenderness, pedal edema, joint swelling, calf tenderness Back exam: Present: normal inspection Neurological exam: Present: alert, oriented X3 Psychiatric exam: Present: normal affect, normal mood Skin exam: Present: warm, dry, intact, normal color. Absent: rash Course Vital Signs 04/06/24 04/06/24 11:22 14:38 Temperature 97.7 F 98.3 F Pulse Rate 68 65 Respiratory 18 16 Rate Blood Pressure 109/72 90/58 O2 Sat by Pulse 100 98 Oximetry Medical Decision Making - Medical Decision Making Was pt. sent in by a medical professional or institution (, PA, ANALYTICAL RESEARCH PROGRAM MANAGER, urgent care, hospital, or fpc...) When possible be specific @ -No Did you speak to anyone other than the patient for history (EMS, parent, family, police, friend...)? What history was obtained from this source @ -No Did you review nursing and triage notes (agree or disagree)? Why? @ -I reviewed and agree with nursing and triage notes Were old charts reviewed (outside hosp., previous admission, EMS record, old EKG, old radiological studies, urgent care reports/EKG's, fpc records)? Report findings @ -No old charts were reviewed Differential Diagnosis (chest pain, altered mental status, abdominal pain women, abdominal pain men, vaginal bleeding, weakness, fever, dyspnea, syncope, headache, dizziness, GI bleed, back pain, seizure, CVA, palpatations, mental health, musculoskeletal)? @ -Differential Abdominal Pain Women: Appendicitis, Cholecystitis, diverticulosis, ischemic bowel, pancreatitis, hepatitis, UTI, gastroenteritis, AAA, incarcerated hernia, bowel obstruction, constipation, inflammatory bowel, hepatitis, peptic ulcer disease, splenic infarction, perforated viscus, vulvitis, ovarian torsion, PID, kidney stone, placenta abruption, this is not meant to be an all-inclusive list EKG interpreted by me (3pts min.). @ -None X-rays interpreted by me (1pt min.). @ -None done CT interpreted by me (1pt min.). @ -CT abdomen pelvis shows a pelvic kidney with stones within the kidney on my interpretation it appears that there is some hydronephrosis of the right pelvic kidney U/S interpreted by me (1pt. min.). @ -None done What testing was considered but not performed or refused? (CT, X-rays, U/S, labs)? Why? @ -None What meds were considered but not given or refused? Why? @ -None Did you discuss the management of the patient with other professionals (professionals i.e. , PA, ANALYTICAL RESEARCH PROGRAM MANAGER, lab, RT, psych nurse, social work administrator, grove superintendent, teacher, digital marketing officer, case coordinator)? Give summary @ -No Was smoking cessation discussed for >3mins.? @ -No Was critical care preformed (if so, how long)? @ -No Were there social determinants of health that impacted care today? How? (Homelessness, low income, unemployed, alcoholism, drug addiction, transportation, low edu. Level, literacy, decrease access to med. care, skilled nursing, rehab)? @ -No Was there de-escalation of care discussed even if they declined (Discuss DNR or withdrawal of care, Hospice)? DNR status @ -No What co-morbidities impacted this encounter? (DM, HTN, Smoking, COPD, CAD, Cancer, CVA, ARF, Chemo, Hep., AIDS, mental health diagnosis, sleep apnea, morbid obesity)? @ -None Was patient admitted / discharged? Hospital course, mention meds given and route, prescriptions, significant lab abnormalities, going to OR and other pertinent info. @ -Discharge. Patient presented emergency department for evaluation of abdominal pain and back pain. Patient has a history of kidney stones and this feels similar. Laboratory studies obtained revealing no significant leukocytosis. Hemoglobin 13.1; CMP nonactionable with creatinine of 0.84; UA shows large blood, trace leukocyte esterase negative urine hCG. CT abdomen pelvis shows pelvic kidney with a stone within the bilateral kidneys. Patient was provided medication for pain control in the ED along with a fluid bolus. She reports improvement in her symptoms. She will be discharged home. Advised follow-up with her PCP. She is understanding agreeable plan. Patient stable at time of discharge. Case discussed with Dr. Arana Undiagnosed new problem with uncertain prognosis? @ -No Drug Therapy requiring intensive monitoring for toxicity (Heparin, Nitro, Insulin, Cardizem)? @ -No Were any procedures done? @ -No Diagnosis/symptom? @ -Hematuria Acute, or Chronic, or Acute on Chronic? @ -Acute Uncomplicated (without systemic symptoms) or Complicated (systemic symptoms)? @ -Uncomplicated Side effects of treatment? @ -No Exacerbation, Progression, or Severe Exacerbation? @ -No Poses a threat to life or bodily function? How? (Chest pain, USA, LA, pneumonia, PE, COPD, DKA, ARF, appy, cholecystitis, CVA, Diverticulitis, Homicidal, Suicidal, threat to staff... and all critical care pts) @ -No - Lab Data Result diagrams: 04/06/24 11:33 04/06/24 11:33 Lab Results 04/06/24 04/06/24 04/06/24 Range/Units 11:33 11:33 12:14 WBC 9.8 (3.8-10.6) k/uL RBC 4.35 (3.80-5.40) m/uL Hgb 13.1 (11.4-16.0) gm/dL Hct 41.6 (34.0-46.0) % MCV 95.8 (80.0-100.0) fL MCH 30.1 (25.0-35.0) pg MCHC 31.4 (31.0-37.0) g/dL RDW 12.8 (11.5-15.5) % Plt Count 349 (150-450) k/uL MPV 7.3 Neutrophils % 70 % Lymphocytes % 22 % Monocytes % 5 % Eosinophils % 2 % Basophils % 0 % Neutrophils # 6.8 (1.3-7.7) k/uL Lymphocytes # 2.1 (1.0-4.8) k/uL Monocytes # 0.5 (0-1.0) k/uL Eosinophils # 0.2 (0-0.7) k/uL Basophils # 0.0 (0-0.2) k/uL Sodium 139 (137-145) mmol/L Potassium 4.0 (3.5-5.1) mmol/L Chloride 107 (98-107) mmol/L Carbon Dioxide 25 (22-30) mmol/L Anion Gap 7 mmol/L BUN 11 (7-17) mg/dL Creatinine 0.84 (0.52-1.04) mg/dL Est GFR (CKD-EPI)AfAm >90 (>60 ml/min/1.73 sqM) Est GFR (CKD-EPI)NonAf 85 (>60 ml/min/1.73 sqM) Glucose 92 (74-99) mg/dL Calcium 9.0 (8.4-10.2) mg/dL Total Bilirubin 1.2 (0.2-1.3) mg/dL AST 19 (14-36) U/L ALT 9 (4-34) U/L Alkaline Phosphatase 61 (38-126) U/L Total Protein 6.8 (6.3-8.2) g/dL Albumin 4.0 (3.5-5.0) g/dL Amylase 47 (30-110) U/L Lipase 74 (23-300) U/L Urine Color Yellow Urine Appearance Cloudy H (Clear) Urine pH 7.5 (5.0-8.0) Ur Specific [place] 1.018 (1.001-1.035) Urine Protein 1+ H (Negative) Urine Glucose (UA) Negative (Negative) Urine Ketones 1+ H (Negative) Urine Blood Large H (Negative) Urine Nitrite Negative (Negative) Urine Bilirubin Negative (Negative) Urine Urobilinogen <2.0 (<2.0) mg/dL Ur Leukocyte Esterase Trace H (Negative) Urine RBC >182 H (0-5) /hpf Urine WBC 15 H (0-5) /hpf Ur Squamous Epith Cells 2 (0-4) /hpf Urine Bacteria Rare H (None) /hpf Urine Mucus Moderate H (None) /hpf Urine HCG, Qual (Not Detectd) 04/06/24 Range/Units 12:14 WBC (3.8-10.6) k/uL RBC (3.80-5.40) m/uL Hgb (11.4-16.0) gm/dL Hct (34.0-46.0) % MCV (80.0-100.0) fL MCH (25.0-35.0) pg MCHC (31.0-37.0) g/dL RDW (11.5-15.5) % Plt Count (150-450) k/uL MPV Neutrophils % % Lymphocytes % % Monocytes % % Eosinophils % % Basophils % % Neutrophils # (1.3-7.7) k/uL Lymphocytes # (1.0-4.8) k/uL Monocytes # (0-1.0) k/uL Eosinophils # (0-0.7) k/uL Basophils # (0-0.2) k/uL Sodium (137-145) mmol/L Potassium (3.5-5.1) mmol/L Chloride (98-107) mmol/L Carbon Dioxide (22-30) mmol/L Anion Gap mmol/L BUN (7-17) mg/dL Creatinine (0.52-1.04) mg/dL Est GFR (CKD-EPI)AfAm (>60 ml/min/1.73 sqM) Est GFR (CKD-EPI)NonAf (>60 ml/min/1.73 sqM) Glucose (74-99) mg/dL Calcium (8.4-10.2) mg/dL Total Bilirubin (0.2-1.3) mg/dL AST (14-36) U/L ALT (4-34) U/L Alkaline Phosphatase (38-126) U/L Total Protein (6.3-8.2) g/dL Albumin (3.5-5.0) g/dL Amylase (30-110) U/L Lipase (23-300) U/L Urine Color Urine Appearance (Clear) Urine pH (5.0-8.0) Ur Specific [place] (1.001-1.035) Urine Protein (Negative) Urine Glucose (UA) (Negative) Urine Ketones (Negative) Urine Blood (Negative) Urine Nitrite (Negative) Urine Bilirubin (Negative) Urine Urobilinogen (<2.0) mg/dL Ur Leukocyte Esterase (Negative) Urine RBC (0-5) /hpf Urine WBC (0-5) /hpf Ur Squamous Epith Cells (0-4) /hpf Urine Bacteria (None) /hpf Urine Mucus (None) /hpf Urine HCG, Qual Not Detected (Not Detectd) Disposition Clinical Impression: Abdominal pain, Hematuria Disposition: HOME SELF-CARE Condition: Stable Instructions (If sedation given, give patient instructions): Hematuria (ED) Additional Instructions: Please follow up with your primary care provider. Return to the emergency department for new or worsening symptoms. Is patient prescribed a controlled substance at d/c from ED?: No Referrals: Bridger Menon MD [Primary Care Provider] - 1-2 days
[2024-04-06 11:54] LABS: Basophils % (A) 0 %; Eosinophils # (A) 0.2 k/uL (0-0.7); Eosinophils % (A) 2 %; HCT 41.6 % (34.0-46.0); HGB 13.1 gm/dL (11.4-16.0); Lymphocytes # (A) 2.1 k/uL (1.0-4.8); Lymphocytes % (A) 22 %; MCH 30.1 pg (25.0-35.0); MCHC 31.4 g/dL (31.0-37.0); MCV 95.8 fL (80.0-100.0); Mean Platelet Volume 7.3; Monocytes # (A) 0.5 k/uL (0-1.0); Monocytes % (A) 5 %; Neutrophils # (A) 6.8 k/uL (1.3-7.7); Neutrophils % (A) 70 %; Platelet Count 349 k/uL (150-450); RBC 4.35 m/uL (3.80-5.40); RDW 12.8 % (11.5-15.5); WBC 9.8 k/uL (3.8-10.6)
[2024-04-06 12:01] LABS: ALT 9 U/L (4-34); AST 19 U/L (14-36); African American GFR (CKD) >90 (>60 ml/min/1.73 sqM); Alkaline Phosphatase 61 U/L (38-126); Amylase 47 U/L (30-110); Anion Gap 7 mmol/L; Blood Urea Nitrogen 11 mg/dL (7-17); Carbon Dioxide 25 mmol/L (22-30); Chloride 107 mmol/L (98-107); Glucose 92 mg/dL (74-99); Lipase 74 U/L (23-300); Non-African American GFR(CKD) 85 (>60 ml/min/1.73 sqM); Sodium 139 mmol/L (137-145); Total Bilirubin 1.2 mg/dL (0.2-1.3); Total Protein 6.8 g/dL (6.3-8.2)
[2024-04-06 12:43] LABS: Appearance,Urine Cloudy (Clear); Bacteria,Urine Rare /hpf; Bilirubin,Urine Negative (Negative); Blood,Urine Large (Negative); Color,Urine Yellow; Glucose,Urine (UA) Negative (Negative); Ketones,Urine 1+ (Negative); Leukocyte Esterase,Urine Trace (Negative); Mucus,Urine Moderate /hpf; Nitrite,Urine Negative (Negative); PH, Urine 7.5 (5.0-8.0); Protein,Urine 1+ (Negative); RBC,Urine >182 /hpf (0-5); Specific Gravity,Urine 1.018 (1.001-1.035); Squamous Epithelial Cell,Urine 2 /hpf (0-4); Urobilinogen,Urine <2.0 mg/dL (<2.0); WBC,Urine 15 /hpf (0-5)
--- NOTE | 2024-04-06 14:00 | CT ---
EXAMINATION TYPE: CT abdomen pelvis wo con DATE OF EXAM: 04/06/2024 COMPARISON: 10/06/2019 CLINICAL INDICATION: Female, 43 years old with history of abd pain; PHH, abdominal pain, hx of kidney stones. TECHNIQUE: CT scan of the abdomen and pelvis is performed without oral or IV contrast. CT DLP: 228.[address] CTDI: mGy Automated exposure control for dose reduction was used. FINDINGS: Within the limitations of a non-contrast study, the following observations are made. The lungs are clear. The gallbladder is not identified with certainty raising question of a contracted gallbladder or chol ecystectomy. There is no biliary ductal dilatation. There is no organomegaly of the liver, pancreas, spleen or adrenal glands. There is a right pelvic kidney. There is a nonobstructing 6 mm calcification in the right kidney. The re is a nonobstructing 2 to 3 mm calcification within the left kidney The caliber of the abdominal aorta is normal and there is no retroperitoneal adenopathy or hemorrhage . The bowel loops are normal in caliber is no evidence of obstruction. No inflammatory changes are iden tified in the mesentery and there is no free intraperitoneal air or fluid. There is no pelvic mass, free fluid, abscess or adenopathy. The osseous structures and soft tissues are unremarkable. IMPRESSION: 1. Right pelvic kidney. 2. Single nonobstructing renal calcifications bilaterally as described above [facility], , 04/06/2024 1:58 PM
[2024-04-06 14:40] VITALS: BP 90/58; PULSE 65; RESP 16; TEMP 98.3
== END 2024-04-06 15:00 | disposition home or self-care (01) ==
LOC: EC 11:15
DX: R10.9 Unspecified abdominal pain (principal); R31.9 Hematuria, unspecified; F17.200 Nicotine dependence, unspecified, uncomplicated; Z88.1 Allergy status to other antibiotic agents; Z88.2 Allergy status to sulfonamides; Z88.5 Allergy status to narcotic agent; Z88.6 Allergy status to analgesic agent; Z88.8 Allergy status to other drugs, medicaments and biological substances
CPT/HCPCS: 36415; 80053; 82150; 83690; 85025; 81001; 81025; 87086; 74176; 99285; 96374; 96375; 96376; 96361; J2405; J1885